=== PATIENT | male | born 1950 | race Hispanic/Latino ===

== ENCOUNTER → 2021-12-18 | Outpatient (CLI) | payer OTHER ==
[~2021-12-18] VITALS: Ht 167.6 cm; Wt 105.2 kg
[~2021-12-18] MED LIST: REGADENOSON 0.4 MG/5 ML PF SYG IVP SCH
== END ==
LOC: SHCH 08:28
PROVIDERS: ATTEND Internal Medicine Cardiovascular Disease
DX: R55 Syncope and collapse (principal)
CPT/HCPCS: 78452; 93017; 96374; A9500 ×2; J2785

== ENCOUNTER → 2021-12-23 | Outpatient (CLI) | payer OTHER | END | disposition home or self-care (01) | LOC: SHCH 09:40 | PROVIDERS: ATTEND Internal Medicine Cardiovascular Disease | DX: I77.810 Thoracic aortic ectasia (principal); I10 Essential (primary) hypertension; R55 Syncope and collapse | CPT/HCPCS: 93306 ==

== ENCOUNTER 2022-02-03 06:26 | Day surgery (SDC) | payer OTHER ==
[2022-02-01 13:13] LABS: BASOPHILS % (AUTO) 0.8 % (0.0-5.0); EOSINOPHILS % (AUTO) 4.4 % (0.0-8.0); HEMATOCRIT 49.2 % (42-54); LYMPHOCYTES % (AUTO) 29.9 % (21.0-51.0); MEAN CORPUSCULAR HEMOGLOBIN 29.6 pg (27.0-33.0); MEAN CORPUSCULAR HGB CONC 32.5 g/dL (32.0-36.0); MEAN CORPUSCULAR VOLUME 90.9 fL (79-99); MONOCYTES % (AUTO) 7.4 % (3.0-13.0); NEUTROPHILS % (AUTO) 56.8 % (40.0-77.0); PLATELET COUNT (AUTO) 240 K/uL (130-400); RED BLOOD CELL COUNT(AUTO) 5.41 MIL/uL (4.50-6.20); RED CELL DISTRIBUTION WIDTH 13.2 % (11.0-15.5); WHITE BLOOD COUNT (AUTO) 9.6 K/uL (4.8-10.8)
[2022-02-01 13:28] LABS: INR 0.94 (0.85-1.15); PROTHROMBIN TIME 10.3 SEC (9.6-11.6)
[2022-02-01 13:29] LABS: PARTIAL THROMBOPLASTIN TIME 29.9 SEC (26.3-35.5)
[2022-02-01 13:32] LABS: CREATININE 1.4 mg/dL (0.5-1.5); POTASSIUM 4.1 mmol/L (3.5-5.1)
[2022-02-01 13:39] LABS: APPEARANCE,URINE CLEAR (CLEAR); BILIRUBIN,URINE NEGATIVE (NEGATIVE); COLOR,URINE YELLOW (YELLOW); GLUCOSE, URINE (UA) NEGATIVE (NEGATIVE); KETONES,URINE NEGATIVE (NEGATIVE); LEUKOCYTE ESTERASE ,URINE NEGATIVE (NEGATIVE); NITRATE,URINE NEGATIVE (NEGATIVE); OCCULT BLOOD,URINE NEGATIVE (NEGATIVE); PROTEIN,URINE NEGATIVE (NEGATIVE); UROBILINOGEN,URINE 0.2 mg/dL (0.2-1.0)
[2022-02-01 15:05] LABS: B-TYPE NATRIURETIC PEPTIDE 53 pg/mL (0-100)
[2022-02-03] VITALS (8 sets, daily range): BP systolic 128–169; BP diastolic 73–94
[~2022-02-03] VITALS: Ht 167.6 cm; Wt 106.4 kg
[~2022-02-03 06:26] MED LIST changes: +AMLO-257 PO; +ASPI-1443 PO; +CYCL30DR OP; +DUTA0.5C37 PO; +HYDR12.54 PO; +METO-391 PO; +MONT10TA21 PO; +NIAC500T22 PO; +OLME40TA18 PO; +PRAV80TA21 PO; -REGADENOSON 0.4 MG/5 ML PF SYG IVP SCH; +TAMS-1 PO; +alegra PO
[2022-02-03] MEDS ORDERED: NITROGLYCERIN 50MG VIAL ONE (07:05)
[2022-02-03] MEDS ORDERED: HEPARIN 10,000 UNIT/10ML (1,000 UNIT/ML) VIAL ONE (07:05)
[2022-02-03] MEDS ORDERED: IOHEXOL 350 MG/ML 100ML INFUS..BTL IV ONE (07:05)
[2022-02-03] MEDS ORDERED: IOHEXOL-350 50ML VIAL IV ONE ×2 (07:05→08:03)
[2022-02-03] MEDS ORDERED: LIDOCAINE HCL 400MG/20ML VIAL ONE (07:06)
[2022-02-03] MEDS ORDERED: FENTANYL CITRATE PF 50 MCG/1 ML 2ML VIAL ONE (07:06)
[2022-02-03] MEDS ORDERED: MIDAZOLAM HCL 1 MG/ML 2ML VIAL ONE (07:06)
[2022-02-03] MEDS ORDERED: BIVALIRUDIN 250 MG/VIAL IV ONE (07:26)
[2022-02-03] MEDS ORDERED: 0.9%NACL 1000ML 1,000 ML IV SCH ×2 (08:00→08:30)
[2022-02-03 09:47] LABS: CHOLESTEROL 150 mg/dL (<200); HDL CHOLESTEROL 31 mg/dL (29-71); LDL DIRECT 71 mg/dL (0-99); TRIGLYCERIDES 237 mg/dL (30-200)
== END 2022-02-03 12:45 | disposition home or self-care (01) ==
LOC: DAH 06:26
PROVIDERS: ATTEND Internal Medicine Cardiovascular Disease
DX: I25.10 Atherosclerotic heart disease of native coronary artery without angina pectoris (principal); I11.0 Hypertensive heart disease with heart failure; I50.32 Chronic diastolic (congestive) heart failure; E66.9 Obesity, unspecified; Z79.01 Long term (current) use of anticoagulants; Z79.899 Other long term (current) drug therapy; Z79.82 Long term (current) use of aspirin; Z98.890 Other specified postprocedural states; Z85.46 Personal history of malignant neoplasm of prostate; Z68.38 Body mass index [BMI] 38.0-38.9, adult
CPT/HCPCS: 36415 ×2; 71045; 80048; 80061; 81003; 83880; 85025; 85610; 85730; 93005; 93458; A4215; A4216; A4221; A4222; A4223 ×3; A4606; A4663; C1760; C1894 ×2; J1644; J2250; J3010; J3490 ×2; J7030; Q9965; Q9967 ×3; 96360; 96361; 99156; 99157; J0583

== ENCOUNTER → 2022-07-26 | Outpatient (CLI) | payer OTHER ==
[2022-07-26 16:31] LABS: ALBUMIN 3.4 g/dL (3.5-5.0); CREATININE 1.3 mg/dL (0.5-1.5); POTASSIUM 4.2 mmol/L (3.5-5.1)
== END | disposition home or self-care (01) ==
LOC: LAB 11:35
PROVIDERS: ATTEND Internal Medicine Cardiovascular Disease
DX: I10 Essential (primary) hypertension (principal); E78.5 Hyperlipidemia, unspecified
CPT/HCPCS: 36415; 80053; 80061

== ENCOUNTER → 2022-09-23 | Outpatient (CLI) | payer OTHER ==
[2022-09-23 12:54] LABS: CREATININE 1.5 mg/dL (0.5-1.5); POTASSIUM 5.1 mmol/L (3.5-5.1)
== END | disposition home or self-care (01) ==
LOC: LAB 11:31
PROVIDERS: ATTEND Internal Medicine Cardiovascular Disease
DX: I10 Essential (primary) hypertension (principal)
CPT/HCPCS: 36415; 80048

== ENCOUNTER → 2022-10-06 | Outpatient (CLI) | payer OTHER ==
[2022-10-06 13:01] LABS: CREATININE 1.5 mg/dL (0.5-1.5); POTASSIUM 4.6 mmol/L (3.5-5.1)
== END | disposition home or self-care (01) ==
LOC: LAB 09:51
PROVIDERS: ATTEND Internal Medicine Cardiovascular Disease
DX: I25.10 Atherosclerotic heart disease of native coronary artery without angina pectoris (principal)
CPT/HCPCS: 36415; 80048

== ENCOUNTER → 2022-12-23 | Outpatient (CLI) | payer OTHER ==
[~2022-12-23] MED LIST changes: +MONT-47 PO; -MONT10TA21 PO
[2022-12-23 12:27] LABS: POTASSIUM 4.3 mmol/L (3.5-5.1)
[2022-12-23 12:28] LABS: CREATININE 1.5 mg/dL (0.5-1.5)
== END | disposition home or self-care (01) ==
LOC: LAB 09:15
PROVIDERS: ATTEND Internal Medicine Cardiovascular Disease
DX: I10 Essential (primary) hypertension (principal)
CPT/HCPCS: 36415; 80048

== ENCOUNTER 2023-10-27 12:15 | Emergency (ER) | payer OTHER ==
[~2023-10-27] VITALS: Ht 165.1 cm; Wt 103.0 kg
[~2023-10-27 12:15] MED LIST changes: -PRAV80TA21 PO; +PRAV80TA43 PO
[2023-10-27] MEDS: ALBUTEROL 0.083% 2.5 MG/3 ML INH IH ONE (13:37)
[2023-10-27 13:38] VITALS: PULSE 83; RESP 18
[2023-10-27 13:52] LABS: BASOPHILS # (AUTO) 0.05 K/uL (0.00-0.20); BASOPHILS % (AUTO) 0.5 % (0.0-5.0); EOSINOPHILS # (AUTO) 0.15 K/uL (0.00-0.70); EOSINOPHILS % (AUTO) 1.4 % (0.0-8.0); HEMATOCRIT 43.5 % (42-54); IMMATURE GRANULOCYTE ABSOLUTE 0.04 K/uL (0-1); LYMPHOCYTES # (AUTO) 2.1 K/uL (1.0-4.8); LYMPHOCYTES % (AUTO) 19.8 % (21.0-51.0); MEAN CORPUSCULAR HEMOGLOBIN 30.7 pg (27.0-33.0); MEAN CORPUSCULAR HGB CONC 33.3 g/dL (32.0-36.0); MEAN CORPUSCULAR VOLUME 92.2 fL (79-99); MONOCYTES # (AUTO) 0.7 K/uL (0.1-1.0); MONOCYTES % (AUTO) 6.9 % (3.0-13.0); NEUTROPHILS # (AUTO) 7.4 K/uL (1.8-7.7); PLATELET COUNT (AUTO) 191 K/uL (130-400); RED BLOOD CELL COUNT(AUTO) 4.72 MIL/uL (4.50-6.20); RED CELL DISTRIBUTION WIDTH 12.8 % (11.0-15.5); WHITE BLOOD COUNT (AUTO) 10.5 K/uL (4.8-10.8)
[2023-10-27 14:03] LABS: CREATININE 1.9 mg/dL (0.5-1.5); POTASSIUM 4.1 mmol/L (3.5-5.1)
[2023-10-27 14:10] LABS: ALBUMIN 3.2 g/dL (3.5-5.0); BILIRUBIN,TOTAL 0.7 mg/dL (0.2-1.0); TOTAL PROTEIN, SERUM 7.2 g/dL (6.0-8.3)
[2023-10-27] MEDS ORDERED: ALBU90AE2 IH (14:54)
[2023-10-27] MEDS ORDERED: GUAI400T94 PO (14:54)
[2023-10-27] MEDS ORDERED: AZIT250T9 PO (14:54)
[2023-10-27 15:24] VITALS: BP 128/80; PULSE 78; RESP 16; O2SAT 96
== END 2023-10-27 15:26 | disposition home or self-care (01) ==
LOC: EDH 12:15
DX: R05.9 Cough, unspecified (principal); R07.89 Other chest pain; N17.9 Acute kidney failure, unspecified; E78.00 Pure hypercholesterolemia, unspecified; I10 Essential (primary) hypertension
CPT/HCPCS: 36415; 71045; 80053; 84484; 85025; 93005; 94640

== ENCOUNTER 2025-05-06 21:34 | Inpatient (IN) | payer OTHER ==
[~2025-05-06] VITALS: Ht 167.6 cm; Wt 106.6 kg
[~2025-05-06 21:34] MED LIST changes: +ALBU90AE3 IH; +AZIT250T9 PO; +GUAI400T94 PO; -PRAV80TA43 PO; +PRAV80TA75 PO; -TAMS-1 PO; +TAMS-55 PO
--- NOTE | 2025-05-06 21:51 | NUR ---
PT CARE ASSUMED AT THIS TIME
--- NOTE | 2025-05-06 21:55 | NUR ---
URINAL GIVEN TO PT TO COLLECT URINE SAMPLE
[2025-05-06] MEDS: 0.9%NACL 1000ML 1,000 ML IV ONE ×2 (22:05→23:20)
--- NOTE | 2025-05-06 22:08 | ERN ---
ED Note History of Present Illness Stated Complaint: C/O SYNCOPAL EPISODE W/HYPOTENSION Chief Complaint: Hypotension Time Seen by MD: 21:39 Dictation: This 74-year-old male brought to the emergency room with complaints of being passed out. Apparently patient was working in the attic and when daughter found him he was hard to arouse. Apparently he told the family he was working on changing the bulbs in the attic and went early in the morning after breakfast. He was not answering any texts or cell phone calls and when family checked on him they found him passed out and difficult to arouse. They decided to bring him in for evaluation. Patient was awake when they eventually woke him up but falling asleep quickly. No head injury no lacerations hematomas or deformities. No fever chills or rigors. No cough sputum or hemoptysis. No nausea vomitings diarrhea. No slurred speech blurred vision diplopia motor weakness or any witnessed seizure activity. Temperature 99.3 pulse 117 respirations 20 blood pressure 82/54 with a pulse oximetry of 95% on room air Chronic problems include hypertension hypercholesterolemia, right eye corneal opacification and BPH Allergies: Coded Allergies: No Known Drug Allergies (Unverified Allergy, Unknown, 12/17/21) Home Meds Active Scripts Albuterol Sulfate (Proair Digihaler) 90 Mcg Aer.pw.bas, 90 MCG IH TID PRN for WHEEZING, #1 INHALER Prov:LUCIA SALAS V [facility] 10/27/23 Guaifenesin (Guaifenesin) 400 Mg Tablet, 400 MG PO BID PRN for COUGH, #30 TAB Prov:LUCIA SALAS V [facility] 10/27/23 Azithromycin (Azithromycin) 250 Mg Tablet, 250 MG PO DAILY, #6 TAB Take 2 now then 1 daily until complete Prov:LUCIA SALAS V [facility] 10/27/23 Reported Medications Montelukast Sodium (Singulair) 10 Mg Tablet, 10 MG PO HS, TAB 02/02/22 [alegra] No Conflict Check, 100 MG PO DAILY 02/02/22 Aspirin (Aspirin EC) 81 Mg Tablet.dr, 81 MG PO HS, TAB 02/02/22 Niacinamide (Niacin) 500 Mg Tablet, 2000 MG PO HS, TAB 02/02/22 Cyclosporine (Restasis) 1 Each Droperette, 1 EACH OP BID, DROP 02/02/22 Dutasteride (Dutasteride) 0.5 Mg Capsule, 0.5 MG PO DAILY, CAP 02/02/22 Tamsulosin HCl (Flomax) 0.4 Mg Cap.er.24h, 0.4 MG PO DAILY, CAPSULE.DR 02/02/22 Pravastatin Sodium (Pravastatin Sodium) 80 Mg Tablet, 80 MG PO HS, TAB 02/02/22 Metoprolol Succinate (Metoprolol Succinate) 50 Mg Tab.er.24h, 50 MG PO DAILY, TAB 02/02/22 Hydrochlorothiazide (Hydrochlorothiazide) 12.5 Mg Tablet, 12.5 MG PO DAILY, TAB 02/02/22 Amlodipine Besylate (Amlodipine Besylate) 5 Mg Tablet, 5 MG PO DAILY, TAB 02/02/22 Olmesartan Medoxomil (Olmesartan Medoxomil) 40 Mg Tablet, 40 MG PO DAILY, TAB 02/02/22 Past Medical History Past Medical History: High Cholesterol, Hypertension Surgical History: Unknown Surgical History Other: RT EYE Family History: Negative RN Note Reviewed/Agreed w/PFSH: Yes Review of System Dictation Constitutional: Negative for fever,chills, and weight loss Eyes: Negative for injury, pain,redness, and discharge ENT: Negative for injury,pain or swelling Cardiovascular: Negative for chest pain, palpitations, and edema positive for syncope and hypotension Respiratory: Negative for shortness of breath, cough, and wheezing, Abdomen/GI: Negative for abdominal pain, nausea, vomiting, diarrhea, and constipation Back: Negative for injury and pain : Negative for injury, bleeding and discharge MS/Extremity: Negative for injury and deformity Skin: Negative for rash, and discoloration Neuro: Negative for headache, weakness, numbness, tingling, and seizure Psych: Negative for suicide ideation, homicidal ideation, and hallucinations Initial Vital Sign VS Vital Signs Date Time Temp Pulse Resp B/P (MAP) Pulse Ox O2 Delivery O2 Flow Rate FiO2 05/06/25 21:42 99.3 117 20 82/51 95 Room Air 05/06/25 22:06 0 21 Physical Exam Dictation General: awake, alert, NAD morbidly obese very pleasant male sleepy but arousable Head/Face: Normocephalic, atraumatic Eyes: PERRL, EOMI, vision at baseline right eye corneal opacification ENT: oral cavity clear, TMs clear, no signs of infection Neck: Trachea midline, supple, no nuchal rigidity Cardiovascular: RRR, normal S1/S2, grade 2-3/6 ejection systolic murmur in the right upper sternal border MRGs, no JVD Respiratory:, no respiratory distress, bilateral coarse rhonchi and wheezes occasionally Abdomen: Soft, non-tender, obese non-distended, normal bowel sounds, no guarding or rebound. Skin: Warm, dry, normal turgor, no rash MS/Extremity: Pulses equal, no cyanosis, neurovascular intact, FROM Neuro: COAx4, GCS 15, strength 5/5, CN 2-12 intact, normal cerebellar exam, normal gait, Psych: Normal behavior, mood, and affect normal Extremities-trace edema without any palpable cords, Homans sign is negative Results (Laboratory/Radiology) Laboratory/Radiology Laboratory Tests Test 05/06/25 22:04 05/06/25 23:10 05/07/25 00:14 05/07/25 01:11 White Blood Count 19.2 K/uL (4.8-10.8) H Red Blood Count 5.24 MIL/uL (4.50-6.20) Hemoglobin 15.9 g/dL (14.0-18.0) Hematocrit 48.8 % (42-54) Mean Corpuscular Volume 93.1 fL (79-99) Mean Corpuscular Hemoglobin 30.3 pg (27.0-33.0) Mean Corpuscular Hemoglobin Concent 32.6 g/dL (32.0-36.0) Red Cell Distribution Width 13.7 % (11.0-15.5) Platelet Count 222 K/uL (130-400) Mean Platelet Volume 11.8 fL (7.5-10.5) H Immature Granulocyte % (Auto) 0.8 % (0-1) Neutrophils (%) (Auto) 81.9 % (40.0-77.0) H Lymphocytes (%) (Auto) 11.3 % (21.0-51.0) L Monocytes (%) (Auto) 5.5 % (3.0-13.0) Eosinophils (%) (Auto) 0.1 % (0.0-8.0) Basophils (%) (Auto) 0.4 % (0.0-5.0) Neutrophils # (Auto) 15.7 K/uL (1.8-7.7) H Lymphocytes # (Auto) 2.2 K/uL (1.0-4.8) Monocytes # (Auto) 1.1 K/uL (0.1-1.0) H Eosinophils # (Auto) 0.01 K/uL (0.00-0.70) Basophils # (Auto) 0.07 K/uL (0.00-0.20) Absolute Immature Granulocyte (auto 0.15 K/uL (0-1) Nucleated Red Blood Cells 0.0 % (0.0-0.19) Sodium Level 136 mmol/L (136-145) Potassium Level 4.3 mmol/L (3.5-5.1) Chloride Level 102 mmol/L (101-111) Carbon Dioxide Level 21 mmol/L (21-32) Blood Urea Nitrogen 43 mg/dL (7-18) H Creatinine 4.1 mg/dL (0.5-1.3) H Glomerular Filtration Rate Calc 15 mL/min (>90) Random Glucose 143 mg/dL (70-105) H Lactic Acid Level 3.3 mmol/L (0.8-2.5) H Total Calcium 10.4 mg/dL (8.5-10.1) H Total Creatine Kinase 2499 U/L (21-232) *H Troponin I High Sensitivity 107.5 ng/L (4-75) *H B-Type Natriuretic Peptide 88 pg/mL (0-100) Blood Gas Specimen Type Arterial Arterial Blood pH 7.333 (7.350-7.450) Arterial Blood Partial Pressure CO2 32 mmHg (35-48) L Arterial Blood Partial Pressure O2 75.0 mmHg (83.0-108.0) L Arterial Blood HCO3 16.7 mmol/L (21.0-28.0) L Arterial Blood Oxygen Saturation 94.4 % (94.0-98.0) Arterial Blood Base Excess -7.9 mmol/L (-2.0-3.0) L Blood Gas Temperature 37.0 CELSIUS (35.5-37.0) Blood Gas Vent Mode ROOMAIR (ROOM AIR) FiO2 21.0 % Blood Gas Specimen Comment RB Influenza Type A Antigen Negative For Type A Influenza Type B Antigen Negative For Type B SARS-CoV-2 Antigen (Rapid) PRESUMPTIVE NEGATIVE Labs Reviewed?: Yes EKG Comment: Twelve lead EKG done on 05/06/2025 at 9:38 p.m. shows a heart rate of 113, NH interval 184, QRS 115, QT/QTC 317/436. Impression sinus tachycardia with a right bundle branch block, nonspecific ST-T changes noted. EKG rhythm strip shows sinus tachycardia with right bundle branch changes. Interpreted by ER MD Dr. Briones ED Course ED Course Orders Procedure Category Date Status Time Cbc With Differential LAB 05/06/25 Complete 21:42 Blood Cult RICKIE 05/06/25 In Process 21:42 Creatine Kinase, Total LAB 05/06/25 Complete 21:42 Lactic Acid LAB 05/06/25 Complete 21:42 Basic Metabolic Panel LAB 05/06/25 Complete 21:42 Chest 1vw RAD 05/06/25 Resulted 21:42 12 Lead Ekg Tracing- EKG 05/06/25 Complete Technical 21:42 0.9%Nacl 1000ml (Ns PHA 05/06/25 Complete 1000ml) 22:00 Cardiac Panel LAB 05/06/25 Complete 21:42 Ct Head/Brain W/O CT 05/06/25 Resulted Contrast 22:26 Arterial Blood Gas RT 05/06/25 Transmitted 22:28 Albuterol 0.083% PHA 05/06/25 Complete 2.5mg/3ml (Proventil 22:30 B-Type Natriuretic LAB 05/06/25 Complete Peptide 22:28 0.9%Nacl 1000ml (Ns PHA 05/06/25 Complete 1000ml) 23:00 Influenza Type A & B, LAB 05/06/25 Complete Rapid 23:17 Covid19 (Sars Antigen LAB 05/06/25 Complete Rapid) 23:17 Arterial Blood Gas LAB 05/07/25 Complete 00:14 Admit Orders ADM 05/07/25 Transmitted 00:34 Midodrine Hcl 5 Mg PHA 05/07/25 Complete Tablet (Proamatine 5 01:00 Edm Admit Bridge Order ADM 05/07/25 Transmitted 00:45 Urinalysis Profile LAB 05/07/25 Logged 00:45 Ceftriaxone 1g Vial PHA 05/07/25 Complete (Rocephine 1g Inj) 01:00 0.9%Nacl 1000ml (Ns PHA 05/07/25 In Process 1000ml) 01:30 Zosyn 3.375gm+Ns 50ml PHA 05/07/25 In Process (Zosyn 3.375gm+Ns 03:00 Renal Nondialysis Diet DIET 05/07/25 Transmitted Breakfast Basic Metabolic Panel LAB 05/07/25 Logged 04:00 Cbc With Differential LAB 05/07/25 Logged 04:00 Magnesium LAB 05/07/25 Logged 04:00 Phosphorus LAB 05/07/25 Logged 04:00 Troponin I High LAB 05/07/25 Logged Sensitivity 04:00 Troponin I High LAB 05/07/25 Logged Sensitivity 10:00 Troponin I High LAB 05/07/25 Logged Sensitivity 16:00 Urine Sodium,Random LAB 05/07/25 Logged 01:24 Urine Creatinine LAB 05/07/25 Logged Random 01:24 Urinalysis Profile LAB 05/07/25 Logged 01:24 Osmolality Urine LAB 05/07/25 Logged 01:24 Fall Precautions CPOE 05/07/25 Transmitted 01:24 Us Carotid Duplex US 05/07/25 Logged 01:24 Echo 2-D Complete ECHO 05/07/25 Logged 01:24 Neuro Checks Every 4 CPOE 05/07/25 Transmitted Hours 01:24 Orthostatic Vital CPOE 05/07/25 Transmitted Signs 01:24 Creatine Kinase, Total LAB 05/07/25 Logged 04:00 Lactic Acid LAB 05/07/25 Logged 04:00 Procalcitonin LAB 05/07/25 In Process 01:24 Acetaminophen 325 Tab PHA 05/07/25 In Process (Tylenol 325mg Tab 01:30 Hydromorphone 0.5mg PHA 05/07/25 In Process Syg (Dilaudid 0.5mg 01:30 Heparin 5,000 Unit PHA 05/07/25 In Process Vial (Heparin 5,000 U 09:00 Hydralazine 20mg Inj PHA 05/07/25 In Process (Apresoline 20mg In 01:30 Lactated Ringers PHA 05/07/25 In Process 1000ml (Lactated 01:30 Lactulose 20 Gm/30 Ml PHA 05/07/25 In Process Udcup (Constulose 01:30 Nitroglycerin 0.4mg PHA 05/07/25 In Process Sl Tab (Nitrostat) 01:30 Aspirin 81mg Chew Tab PHA 05/07/25 Complete (Aspirin 81mg Chew 01:30 Aspirin 81mg Ec Tab PHA 05/07/25 In Process (Aspirin 81mg Ec Tab 09:00 Ondansetron 4mg Inj PHA 05/07/25 In Process (Zofran 4mg Inj) 01:30 Pantoprazole 40mg Tab PHA 05/07/25 In Process (Protonix 40mg Tab 09:00 Atorvastatin 40mg PHA 05/07/25 In Process (Lipitor 40mg) 21:00 Lactic Acid (Removed) LAB 05/07/25 Logged 01:44 Current Medications Medications (Trade) Dose Ordered Sig/Dale Route PRN Reason Start Time Stop Time Status Last Admin Dose Admin Albuterol Sulfate (Proventil 0.083% 2.5mg/3ml) 2.5MG ONCE ONCE IH 05/06/25 22:30 05/06/25 22:33 DC 05/06/25 23:58 Sodium Chloride 1,000 ml @ 0 mls/hr ONCE ONCE IV 05/06/25 22:00 05/06/25 22:01 DC 05/06/25 22:05 Sodium Chloride 1,000 ml @ 0 mls/hr Q0M ONCE IV 05/06/25 23:00 05/06/25 23:01 DC 05/06/25 23:20 Vital Signs Date Time Temp Pulse Resp B/P (MAP) Pulse Ox O2 Delivery O2 Flow Rate FiO2 05/07/25 00:54 82 21 122/68 95 Room Air* 0 05/07/25 00:18 82 17 101/62 99 Room Air* 0 05/06/25 23:58 82 18 05/06/25 23:00 112 25 89/56 95 Room Air* 0 05/06/25 22:06 99.3 111 30 89/52 93 Room Air* 0 05/06/25 21:42 99.3 117 20 82/51 95 Room Air We will perform diagnostic labs, advanced imaging and administer medications according to the patient's complaint. Once the results are available, will review and personally interpreted the labs to rule out any acute life- threatening emergency the trach require immediate intervention and treatment. I will then re-evaluate the patient after treatment and diagnostic exams have return to determine whether the patient requires any further testing, can safely be discharged home or need further admission to hospital for additional treatment and evaluation. 12:45 a.m. patient accepted by Cam Reyes, mid-level provider for [facility] hospitalist group for admission and further management. Medical Decision Making MDM Differential diagnosis: Heat exhaustion/heat stroke, sepsis, severe dehydration, neurological event, cardiac event, hypoglycemia It is conceivable that the patient was exposed to very high temperature is in the attic with no fan and perhaps suffered a heat exhaustion with a nontraumatic rhabdomyolysis. He may have a UTI as he had what his pants. And with a leukocytosis low-grade fever, sepsis is certainly considered. This is a 74-year-old male who is morbidly obese apparently was found in an attic passed out. Apparently he told the family he was working on changing the bulbs in the attic and went early in the morning after breakfast. He was not answering any texts or cell phone calls and when family checked on him they found him passed out and difficult to arouse. They decided to bring him in for evaluation. Patient was awake when they eventually woke him up but falling asleep quickly. No head injury no lacerations hematomas or deformities. No fever chills or rigors. No cough sputum or hemoptysis. No nausea vomitings diarrhea. No slurred speech blurred vision diplopia motor weakness or any witnessed seizure activity. Temperature 99.3 pulse 117 respirations 20 blood pressure 82/54 with a pulse oximetry of 95% on room air His chronic medical problems include hypertension and hyperlipidemia. 10:50 p.m. CBC showed a white count of 19.2 hemoglobin 15.9 platelets 222 11:15 p.m. BNP 7 showed a BUN and creatinine of 43 and 4.1 calcium 10.4 lactic acid 3.3 total CK 2499 troponins 107.5 12:[address] scan of the head has been done-radiology interpretation is still pending. I did not appreciate any acute intracranial abnormality. Chest x-ray is unremarkable for any acute infiltrate After 2 L of IV fluids patient is very perked up more interactive joking and denied absolutely any chest pain, neck pain or jaw pain. I updated the patient and his on all the available test results and possibilities and recommended admission to the hospital for close monitoring of the blood pressure. Once urinalysis is obtained we will give him empiric antibiotics to cover UTI. Rationale: Tests considered and ordered secondary to shared decision making include: labs, ECG and radiology Previous outside records reviewed: Old ER visits. Risk of complication and/or morbidity or mortality of patient management: None Medications-Per medication reconciliation Need for hospitalization: Patient does meet criteria for hospitalization. Need for emergency major/minor surgery: No There are no social concerns with this patient. Prescription drug management Prescriptions will include symptomatic care Patient's prior external medical records from other ER visits were reviewed by me as indicated. Prior testing and results from previous visits were reviewed. Prior tests were taken into account with medical decision making and resource utilization, independent historian/historians were used to obtain complete medical history. I independently interpreted the test that were performed, results were reviewed by me and considered findings on radiology if ordered. Medical management and examination interpretation discussions were had by me with other qualified healthcare professionals as indicated for the patient's care. Problem List Problem List: (1) Syncope (2) Hypotension (3) Dehydration (4) Lactic acidosis (5) Severe sepsis (6) Elevated troponin level (7) Non-traumatic rhabdomyolysis (8) TRACEY (acute kidney injury) Critical Care Note Critical Time: 45 minutes Comment(s) Life-threatening illness; hypotension, lactic acidosis, syncope, rhabdomyolysis, renal insufficiency Risk of morbidity mortality-high Complexity of medical decision making-high (X) high probability of sudden clinically significant deterioration in the patient's condition required the highest level of my preparedness to intervene urgently. I provided critical care services requiring my direct and personal management as noted below; (x) chart data review (x) reviewing nurse's notes and/charts (x) documentation time (x) consultation collaboration on findings and therapy options (x) medication orders and management (x) re-evaluations (x) care, transfer of care, and discharge plans (x) ordering and interpreting studies (x) ordering and reviewing labs (x) obtaining necessary history from family, EMS, detention, private MD, surrogate decision makers because patient was unable to give history due to limitations in the mental status (x) aggregate critical care time was ( 45 ) minutes. This includes only time during which I was engaged in work directly related to the patient's care as described above whether at the bedside or elsewhere in the ER while the patient was critical. My time did not include minutes spent treating any other patients simultaneously or on activities that did not directly contribute to the patient's treatment. It did not include time spent performing other reported procedures or services of residents if any. Nicole UBRINACP DX & DISP Disposition: Inpatient Decision to Admit Time: 00:47 Departure Impression: Primary Impression: Syncope Additional Impressions: Hypotension, Dehydration, Severe sepsis, Lactic acidosis, Non-traumatic rhabdomyolysis, Elevated troponin level Condition: Stable Additional Instructions: Patient was informed of all the diagnostic labs and procedures conducted in the emergency room today and demonstrated understanding of the results. I personally reviewed and interpreted all the diagnostic exams performed in the ER today. The patient will be admitted to the hospital for further treatment and evaluation. Disposition-admit to facility Condition-stable/guarded Course-uncertain at this time Pain status-decreased Assessment-exam unchanged Admission Certification- I certify that the patients status is appropriate and is based on my best clinical judgment and the patient's condition as documented in the medical records Referrals: HAYES CARNEY MD (PCP) NICOLE BRIONES MD May 06, 2025 22:07
[2025-05-06 22:43] LABS: IMMATURE GRANULOCYTE ABSOLUTE 0.15 K/uL (0-1); NUCLEATED RED BLOOD CELLS 0.0 % (0.0-0.19); PLATELET COUNT (AUTO) 222 K/uL (130-400); RED BLOOD CELL COUNT(AUTO) 5.24 MIL/uL (4.50-6.20); RED CELL DISTRIBUTION WIDTH 13.7 % (11.0-15.5); WHITE BLOOD COUNT (AUTO) 19.2 K/uL (4.8-10.8)
[2025-05-06 22:55] LABS: CREATININE 4.1 mg/dL (0.5-1.3); GLOMERULAR FILTR. RATE CALC 15.0 mL/min (>90); GLUCOSE,RANDOM 143.0 mg/dL (70-105); SODIUM SERUM 136.0 mmol/L (136-145); UREA NITROGEN, BLOOD 43.0 mg/dL (7-18)
[2025-05-06 23:15] LABS: CREATINE KINASE, TOTAL 2499.0 U/L (21-232)
--- NOTE | 2025-05-06 23:23 | HMCIMG ---
EXAM: CR Chest, 2 View. CLINICAL HISTORY: hypotension COMPARISON: None provided. FINDINGS: LUNGS: The lungs show no infiltrate or other acute finding. PLEURAL SPACES: No evidence of pleural effusion or pneumothorax. MEDIASTINUM: The cardiomediastinal silhouette is within normal limits. BONES: No aggressive appearing osseous lesion seen. IMPRESSION: No acute cardiopulmonary pathology is evident. /[place]
[2025-05-06 23:58] VITALS: PULSE 82; RESP 18
[2025-05-06] MEDS: ALBUTEROL 0.083% 2.5 MG/3 ML INH IH ONE (23:58)
--- NOTE | 2025-05-07 00:02 | EKG ---
[facility] Test Date: 2025-05-06 Test Time: 21:38:58 Pat Name: GERALD CASE Department: ED Room: 318 Gender: M Manager Image: [id number] [phone] Requested By: URIAH HICKMAN Order Number: [id number] Reading MD: Donovan Denton Measurements Intervals [place] Rate: 113 P: 10 ND: 184 QRS: 72 QRSD: 115 T: 21 QT: 317 QTc: 436 Interpretive Statements Sinus tachycardia Right bundle branch block Compared to ECG 10/27/2023 13:31:12 Sinus rhythm no longer present Electronically Signed On 05-09-2025 19:53:21 CDT by Donovan Denton Please click the below link to view image of tracing.
--- NOTE | 2025-05-07 00:09 | HMCIMG ---
EXAM: Non-contrast CT examination of the Brain. CLINICAL HISTORY: Syncope. TECHNIQUE: Thin collimated axial CT images of the brain were obtained, with sagittal and coronal reformatted images also submitted. CT scan done according to ALARA (As Low as Reasonably Achievable). CONTRAST USED: None. COMPARISON: None provided. FINDINGS: No acute intracranial abnormality is present. No acute cortical infarction, hemorrhage, mass, or mass effect. Mild to moderate chronic ischemic changes secondary to small vessel disease. No hydrocephalus or abnormal extra-axial fluid collections. The posterior fossa is unremarkable. The skull base and calvarium are intact. Mild scutal mucosal disease in the paranasal sinuses. The mastoid air cells are clear bilaterally. Questionable calcified ectopia lentis in the right eye globe. Mild scarring around the left occipital scalp. IMPRESSION: No acute intracranial abnormality is present. Mild to moderate chronic ischemic changes secondary to small vessel disease. /[place]
[2025-05-07 00:16] LABS: ABG BASE EXCESS -7.9 mmol/L (-2.0-3.0); ABG HCO3 16.7 mmol/L (21.0-28.0); ABG OXYGEN SATURATION 94.4 % (94.0-98.0); ABG PCO2 32 mmHg (35-48); ABG PH 7.333 (7.350-7.450); PO2, ARTERIAL BG 75.0 mmHg (83.0-108.0); TEMPERATURE, CELSIUS BG 37.0 CELSIUS (35.5-37.0); VENT MODE, BG ROOMAIR (ROOM AIR)
[2025-05-07] MEDS ORDERED: NITROGLYCERIN 0.4 MG SL TAB SL PRN (01:30)
[2025-05-07] MEDS ORDERED: LACTULOSE 20 GM/30 ML UDCUP PO PRN (01:30)
[2025-05-07] MEDS: LACTATED RINGERS 1000ML 1,000 ML IV SCH (01:30)
[2025-05-07 01:36] LABS: COVID19 (SARS ANTIGEN RAPID) PRESUMPTIVE NEGATIVE (NEGATIVE); INFLUENZA TYPE A Negative For Type A (NEGATIVE); INFLUENZA TYPE B Negative For Type B (NEGATIVE)
[2025-05-07] MEDS: 0.9%NACL 1000ML 1,914 ML IV ONE (01:40)
--- NOTE | 2025-05-07 01:41 | HP ---
History of Present Illness Reason for Visit: dizziness History of Present Illness Mr. Serna is a 74-year-old male that was seen and examined today on 05/07/2025. Patient came to the emergency department with a chief complaint of syncope. Onset was 05/06/2025. Location is head. Duration is on and off. Patient reports one episode. Character is described as, "like I just passed out and fell asleep. "There was no alleviating factors. Symptoms are aggravated with the changing a light bulb in a hot attic. Patient reports associated loss of consciousness. Today in the emergency department patient arrived with a blood pressure of 82/51 that responded well to 2 L of 0.9% NS. Additionally heart rate was 117, respirations 25 together with WBCs of 19.2 lactic acid 3.3 patient met clinical sepsis criteria. Patient has a left shift neutrophils 81.9%, BUN 43, creatinine 4.1, lactic acid 3.3, CK 2499, troponin elevated at 107.5, chest x-ray is unremarkable. Emergency room physician recommended patient be admitted with a diagnosis of hypotension, syncope, elevated troponin, rhabdomyolysis, sepsis, leukocytosis, TRACEY on CKD. 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 Patient lives with his of 50 years, Ary Serna. Patient is typically independent of his ADLs. Patient denies difficulty pain is bills.] SURGICAL HISTORY: [Left heart catheterization, incision and drainage of posterior neck abscess] Review of Systems General: No Fever, No Chills, No Night Sweats, No Fatigue, No Malaise, No Appetite, No Other HEENT: No Head Aches, No Visual Changes, No Eye Pain, No Ear Pain, No Dysphasia, No Sinus Congestion, No Post Nasal Drip, No Sore Throat, No Other Pulmonary: No Dyspnea, No Cough, No Pleuritic Chest Pain, No Other Cardiovascular: Lt Headedness; No: Chest Pain, Palpitations, Orthopnea, Paroxysmal Noc. Dyspnea, Edema, Other Gastrointestinal: No: Nausea, Vomiting, Abdominal Pain, Diarrhea, Constipation, Melena, Hematochezia, Other Genitourinary: No Dysuria, No Frequency, No Incontinence, No Hematuria, No Retention, No Other Musculoskeletal: No: other, neck pain, shoulder pain, arm pain, back pain, hand pain, leg pain, foot pain Skin: No Urticaria, No Rash, No Other Neurological: No: Weakness, Numbness, Incoordination, Change in speech, Confusion, Seizures, Other Allergies: Coded Allergies: No Known Drug Allergies (Unverified Allergy, Unknown, 12/17/21) Scheduled Amlodipine Besylate (Amlodipine Besylate), 5 MG PO DAILY, (Reported) Aspirin (Aspirin EC), 81 MG PO HS, (Reported) Azithromycin (Azithromycin), 250 MG PO DAILY Cyclosporine (Restasis), 1 EACH OP BID, (Reported) Dutasteride (Dutasteride), 0.5 MG PO DAILY, (Reported) Hydrochlorothiazide (Hydrochlorothiazide), 12.5 MG PO DAILY, (Reported) Metoprolol Succinate (Metoprolol Succinate), 50 MG PO DAILY, (Reported) Montelukast Sodium (Singulair), 10 MG PO HS, (Reported) Niacinamide (Niacin), 2,000 MG PO HS, (Reported) Olmesartan Medoxomil (Olmesartan Medoxomil), 40 MG PO DAILY, (Reported) Pravastatin Sodium (Pravastatin Sodium), 80 MG PO HS, (Reported) Tamsulosin HCl (Flomax), 0.4 MG PO DAILY, (Reported) [alegra], 100 MG PO DAILY, (Reported) Scheduled PRN Albuterol Sulfate (Proair Digihaler), 90 MCG IH TID PRN for WHEEZING Guaifenesin (Guaifenesin), 400 MG PO BID PRN for COUGH Exam Vital Signs Vital Signs Date Time Temp Pulse Resp B/P (MAP) Pulse Ox O2 Delivery O2 Flow Rate FiO2 05/07/25 00:54 82 21 122/68 95 Room Air* 0 21 05/06/25 22:06 99.3 General Appearance: Alert, Oriented X3, Cooperative, No acute distress HEENT: Atraumatic, Other (Right eye corneal hyperplasia) Respiratory: Clear to auscultation, Normal air movement, NL respiratory effort Cardiovascular: Normal S1, Normal S2, Other (Positive tachycardia) Abdominal: Normal bowel sounds, Soft, No tenderness Extremities: No edema Skin: No significant lesion Neuro: Normal speech, Strength at 5/5 X4 ext, Sensation intact, Cranial nerves 3-12 NL Psych/Mental Status: Mental status NL, Mood NL, Thoughts/Content NL Assessment/Plan ASSESSMENT: [ Hypotension, POA Syncope episode, POA Sepsis, POA Leukocytosis, POA Hyperlactatemia, POA Elevated troponin, POA Rhabdomyolysis, POA TRACEY on CKD, POA, today creatinine 4.1, on 10/27/2023 creatinine 1.9 Hypertension BPH Hyperlipidemia PLAN: [ Admit patient to medical floor as inpatient status. Place patient on telemetry monitoring. Hypotension: Patient responded well to 2 L of 0.9% NS. Administer midodrine 5 mg by mouth times 1. Consider upgrading to ICU and starting vasopressor support with Levophed if patient has recurrent hypotension Syncope episode: Check orthostatic vital signs once per shift Fall precautions Ultrasound carotid Doppler, follow up with the results 2D echo, follow up with the results Neuro checks every 2 hours with the vital signs (check GCS, level of consciousness, extremity movement, pupil reaction, hand grasp strength, speech clarity) Sepsis, leukocytosis, hyperlactatemia: Check procalcitonin, follow up with the results. Check blood culture, follow up with the results Check urinalysis, follow up with the results Fluid resuscitation with 0.9% NS at 30 mL/kg Empiric antibiotic therapy with Zosyn Consider deescalating antibiotics if blood cultures negative and no other signs of infection throughout hospitalization Elevated troponin: Administer aspirin 162 mg by mouth times 1 dose Continue aspirin 81 mg by mouth once daily Nitroglycerin sublingual 0.4 mg as needed for chest pain every 5 minutes, max 3 doses, hold for systolic blood pressure less than 100 mmHg. Trend troponin every 6 hours x 3 sets Supplemental oxygen to maintain O2 saturation greater than 92% Consult cardiology if any elevation in troponin or troponin uptrending, or if patient deemed to need stress test by daytime rouding service. Rhabdomyolysis: Patient received 2 L of 0.9% NS in the emergency department. Patient will also receive an extra 1.5 L of fluid to complete 30 mL/kg fluid resuscitation. After that lactated Ringer's at 75 mL/HR Recheck CK in a.m. if less than 1000 discontinue IV fluids. TRACEY on CKD: Reviewed patient's most recent baseline creatinine which was 1.9 on 10/27/2023. Calculate FENA Check urine sodium, creatinine, osmolality Avoid nephrotoxic agents when possible Renally dose all medications when possible Consider consulting Nephrology service if any worsening renal function or evidence of ATN. Monitor patient's labs. Weight patient daily. Monitor intake and output. Hypertension, BPH, hyperlipidemia: Consider resuming home medications once they have been reconciled. At time of admission home medications has been reconciled. For now: Hold patient's blood pressure medications given recent episode of hypotension. Atorvastatin 40 mg by mouth once daily. GI prophylaxis, Protonix DVT prophylaxis, heparin ADVANCED CARE PLANNING 1. Which of the following were discussed? Hospice Care - Yes Therapeutic options - yes Advance Directives - Yes - patient states he does not have any advance directives in place at this time, however his can make decisions for him if he becomes unable. Other discussions - patient wishes to remain a full code 2. Discussed with who? Patient 3. Voluntary nature of this service was explained to the patient? Yes 4. Amount of time spent - ___16 minutes____ 5. Reviewed by Physician? (if this service was performed by NPP) Yes This document was generated in part using voice recognition software, occasional wrong word or sound alike substitutions may have occurred due to the inherent limitations of voice recognition software. Read the chart carefully and recognize using context, where the substitutions have occurred. Although every effort was made to edit the content, principal solutions architect and typing errors may occur ATTESTATION BY PHYSICIAN I have seen and examined the patient. I reviewed the documentation, medical decision making, and treatment plan as noted by the mid-level provider above. I agree with the findings and plan of care. ] [facility] May 07, 2025 01:41
[2025-05-07] MEDS: ASPIRIN 81MG CHEW TAB PO ONE (01:43)
[2025-05-07 02:14] LABS: APPEARANCE,URINE CLOUDY (CLEAR); GLUCOSE, URINE (UA) NEGATIVE (NEGATIVE); LEUKOCYTE ESTERASE ,URINE 25 Leu/uL (NEGATIVE); NITRATE,URINE NEGATIVE (NEGATIVE); OCCULT BLOOD,URINE +- (TRACE) (NEGATIVE)
[2025-05-07 02:17] LABS: CREATININE,URINE RANDOM 342.79 mg/dL (30-135)
[2025-05-07 02:25] LABS: ADD UA MICROSCOPIC YES
[2025-05-07 02:28] LABS: SQUAMOUS EPITHELIAL CELL,UR FEW /HPF (0-2)
[2025-05-07] MEDS ORDERED: LABE100T7 PO ×2 (02:58→06:48)
[2025-05-07] MEDS: ZOSYN 3.375GM +NS 50ML IV SCH (03:31)
[2025-05-07] MEDS ORDERED: AMLO-257 PO (06:48)
[2025-05-07] MEDS ORDERED: EZET10TA80 PO (06:48)
[2025-05-07] MEDS ORDERED: OLME40TA18 PO (06:48)
[2025-05-07] MEDS ORDERED: TAMS-55 PO (06:48)
[2025-05-07] MEDS ORDERED: MONT-39 PO (06:48)
[2025-05-07] MEDS ORDERED: PRAV40TA62 PO (06:48)
[2025-05-07] MEDS ORDERED: OMEG100033 PO (06:48)
[2025-05-07] MEDS ORDERED: SPIR25TA6 PO (06:48)
[2025-05-07] MEDS ORDERED: FEXO180T94 PO (06:48)
[2025-05-07] MEDS ORDERED: DUTA0.5C37 PO (06:48)
[2025-05-07] MEDS ORDERED: ASPI-1197 PO (06:48)
--- NOTE | 2025-05-07 06:48 | NUR ---
MEDICATION RECONCILIATION DONE AT THIS TIME
--- NOTE | 2025-05-07 07:13 | NUR ---
REPORT GIVEN TO ALECIA RN AND KARINA RN AT THIS TIME
[2025-05-07 07:39] LABS: IMMATURE GRANULOCYTE ABSOLUTE 0.07 K/uL (0-1); NUCLEATED RED BLOOD CELLS 0.0 % (0.0-0.19); PLATELET COUNT (AUTO) 182 K/uL (130-400); RED BLOOD CELL COUNT(AUTO) 4.60 MIL/uL (4.50-6.20); RED CELL DISTRIBUTION WIDTH 13.6 % (11.0-15.5); WHITE BLOOD COUNT (AUTO) 16.7 K/uL (4.8-10.8)
[2025-05-07 08:20] LABS: CREATININE 3.2 mg/dL (0.5-1.3); GLOMERULAR FILTR. RATE CALC 20.0 mL/min (>90); GLUCOSE,RANDOM 124.0 mg/dL (70-105); PHOSPHORUS 3.2 mg/dL (2.5-4.9); SODIUM SERUM 138.0 mmol/L (136-145); UREA NITROGEN, BLOOD 47.0 mg/dL (7-18)
[2025-05-07 08:25] LABS: CREATINE KINASE, TOTAL 2970.0 U/L (21-232)
[2025-05-07] MEDS: ASPIRIN 81 MG EC TAB PO SCH (09:23)
--- NOTE | 2025-05-07 11:30 | NUR ---
SPOKE TO DR. CENTENO
[2025-05-07] MEDS: SODIUM BICARBONATE 650 MG TAB PO SCH (11:40)
--- NOTE | 2025-05-07 11:58 | NUR ---
DR. CENTENO AT BEDSIDE
[2025-05-07] MEDS: 0.9%NACL 1000ML 1,000 ML IV SCH (12:30)
--- NOTE | 2025-05-07 13:40 | CONS ---
NEPHROLOGY CONSULTATION NOTE Date/Time Patient Seen: May 07, 2025 [id number] Reason for Consultation: Renal failure HISTORY OF PRESENT ILLNESS: This is a 74-year-old male with a past medical history of chronic kidney disease, hypertension, BPH, hyperlipidemia, right eye blindness. Presented to emergency room complaints of syncope. Patient states he was found in the hot attic. CK on admission was 2,199 U/L Imaging studies were noted Urine was positive for proteinuria. He was noted to have elevated BUN/creatinine We are consulted for renal failure and rhabdomyolysis. Renal function is improving Electrolytes are stable. He was seen in the emergency room, in no acute distress He is complaining of generalized weakness No family at the bedside Prognosis remains guarded REVIEW OF SYSTEMS: GENERAL: Positive for generalized weakness NEUROLOGIC: Negative for any blurry vision, blind spots, double vision, facial asymmetry, dysphagia, dysarthria, hemiparesis, hemisensory deficits, vertigo, ataxia. HEENT: Negative for any head trauma, neck trauma, neck stiffness, photophobia, phonophobia, sinusitis, rhinitis. CARDIAC: Negative for any chest pain, dyspnea on exertion, paroxysmal nocturnal dyspnea, peripheral edema. PULMONARY: Negative for any shortness of breath, wheezing, COPD, or TB exposure. GASTROINTESTINAL: Negative for any abdominal pain, nausea, vomiting, bright red blood per rectum, melena. GENITOURINARY: Negative for any dysuria, hematuria, incontinence. INTEGUMENTARY: Negative for any rashes, cuts, insect bites. RHEUMATOLOGIC: Negative for any joint pains, photosensitive rashes, history of vasculitis or kidney problems. HEMATOLOGIC: Negative for any abnormal bruising, frequent infections or bleeding. PAST MEDICAL HISTORY: chronic kidney disease, hypertension, BPH, hyperlipidemia, right eye blindness. PAST SURGICAL HISTORY: Left heart catheterization I&D neck abscess PAST SOCIAL HISTORY: Denies use of alcohol, tobacco or illicit drugs FAMILY HISTORY: Noncontributory PHYSICAL EXAM: GENERAL: Alert and oriented x 3. No acute distress. Well-nourished. EYES: EOMI. Anicteric. HENT: Moist mucous membranes. No scleral icterus. No cervical lymphadenopathy. LUNGS: Clear to auscultation bilaterally. No accessory muscle use. CARDIOVASCULAR: Regular rate and rhythm. No murmur. No JVD. ABDOMEN: Soft, non-tender and non-distended. No palpable masses. EXTREMITIES: No edema. Non-tender SKIN: No rashes or lesions. Warm. NEUROLOGIC: No focal neurological deficits. CN II-XII grossly intact, but not individually tested. PSYCHIATRIC: Cooperative. Appropriate mood and affect. MEDICATIONS: [ ] Current Medications Medications (Trade) Dose Ordered Sig/Dale Route PRN Reason Start Time Stop Time Status Last Admin Dose Admin Acetaminophen (TYLenol 325MG TAB) 650 mg Q6H PRN PO TEMPERATURE GREATER THAN 101.5 05/07/25 01:30 06/06/25 01:29 Aspirin (Aspirin 81mg Ec Tab) 81 mg DAILY PO 05/07/25 09:00 06/06/25 08:59 05/07/25 09:23 81 MG Atorvastatin Calcium (LIPItor 40MG) 40 mg HS PO 05/07/25 21:00 06/06/25 20:59 Heparin Sodium (Porcine) (HEParin 5,000 UNIT VIAL) 5,000 unit BID SQ 05/07/25 09:00 06/06/25 08:59 05/07/25 09:22 5,000 UNIT Hydralazine HCl (APRESOLine 20MG INJ) 10 mg Q6H PRN IV For:SBP above 160;DBP above 90 05/07/25 01:30 06/06/25 01:29 Hydromorphone HCl (DiLAUDid 0.5MG INJ) 0.25 mg Q4H PRN IVP SEVERE PAIN (7-10) 05/07/25 01:30 05/12/25 01:29 Lactated Ringer's 1,000 ml @ 100 mls/hr Q10H IV 05/07/25 01:30 06/06/25 01:29 05/07/25 01:30 75 MLS/HR Lactulose (Constulose 20gm/ 30ml Udcup) 20 gm BID PRN PO CONSTIPATION 05/07/25 01:30 06/06/25 01:29 Nitroglycerin (Nitrostat) 0.4 mg PROTOCOL PRN SL CHEST PAIN 05/07/25 01:30 06/06/25 01:29 Ondansetron HCl (zoFRAN 4MG INJ) 4 mg Q6H PRN IV NAUSEA/VOMITING 05/07/25 01:30 06/06/25 01:29 Pantoprazole Sodium (PROTonix 40MG TAB) 40 mg DAILY PO 05/07/25 09:00 06/06/25 08:59 05/07/25 09:22 40 MG Piperacillin Sod/ Tazobactam Sod (Zosyn 3.375gm+NS 50ml) 3.375 gm Q12H IV 05/07/25 03:00 05/17/25 02:59 05/07/25 03:31 3.375 GM Sodium Bicarbonate (Sodium Bicarbonate) 1,300 mg BID PO 05/07/25 11:30 06/06/25 11:29 05/07/25 11:40 1,300 MG Sodium Chloride 1,000 ml @ 150 mls/hr Q6H40M IV 05/07/25 12:30 06/06/25 12:29 Thiamine HCl (Vitamin B-1) 100 mg DAILY IVP 05/08/25 09:00 06/07/25 08:59 Vitamin B Complex/ Vit C/Folic Acid (Nephrovite Tablet) 1 cap DAILY PO 05/08/25 09:00 06/07/25 08:59 Vital Signs (last 8hr) Date Time Temp Pulse Resp B/P (MAP) Pulse Ox O2 Delivery O2 Flow Rate FiO2 05/07/25 12:28 70 20 103/57 97 Room Air* 0 21 05/07/25 10:37 71 19 108/56 96 Room Air* 0 21 05/07/25 06:24 73 13 111/75 95 Room Air* 0 21 DIAGNOSTICS / RADIOLOGY: [place] [address] IMAGING REPORT Signed PATIENT: GERALD CASE MR#: [id number] : 1950 SEX: M AGE: 74 LOCATION: [facility] ORDER 26 STATUS: REG ER REPORT#: [id number] SERVICE 25 REASON: syncope ORDERING PHYSICIAN: URIAH HICKMAN MD PROCEDURE: HEAD WO - CT HEAD/BRAIN W/O CONTRAST EXAM: Non-contrast CT examination of the Brain. CLINICAL HISTORY: Syncope. TECHNIQUE: Thin collimated axial CT images of the brain were obtained, with sagittal and coronal reformatted images also submitted. CT scan done according to ALARA (As Low as Reasonably Achievable). CONTRAST USED: None. COMPARISON: None provided. FINDINGS: No acute intracranial abnormality is present. No acute cortical infarction, hemorrhage, mass, or mass effect. Mild to moderate chronic ischemic changes secondary to small vessel disease. No hydrocephalus or abnormal extra-axial fluid collections. The posterior fossa is unremarkable. The skull base and calvarium are intact. Mild scutal mucosal disease in the paranasal sinuses. The mastoid air cells are clear bilaterally. Questionable calcified ectopia lentis in the right eye globe. Mild scarring around the left occipital scalp. IMPRESSION: No acute intracranial abnormality is present. Mild to moderate chronic ischemic changes secondary to small vessel disease. /[place] DICTATED BY: ISIDRA SALAZAR Jr., MD DATE: 05/07/25108 ELECTRONICALLY SIGNED BY: ISIDRA SALAZAR Jr., MD DATE: 05/07/25108 PATIENT: GERALD CASE MR#: [id number] : 1950 SEX: M AGE: 74 LOCATION: [facility] ORDER 43 STATUS: [facility] REPORT#: [id number] SERVICE 41 REASON: hypotension ORDERING PHYSICIAN: URIAH HICKMAN MD PROCEDURE: CXR1VW - CHEST 1VW EXAM: CR Chest, 2 View. CLINICAL HISTORY: hypotension COMPARISON: None provided. FINDINGS: LUNGS: The lungs show no infiltrate or other acute finding. PLEURAL SPACES: No evidence of pleural effusion or pneumothorax. MEDIASTINUM: The cardiomediastinal silhouette is within normal limits. BONES: No aggressive appearing osseous lesion seen. IMPRESSION: No acute cardiopulmonary pathology is evident. /[place] DICTATED BY: ISIDRA SALAZAR Jr., MD DATE: 05/07/2522 ELECTRONICALLY SIGNED BY: ISIDRA SALAZAR Jr., MD DATE: 05/07/2522 LABORATORY: [ ] Hematology Labs: Test 05/07/25 07:16 Range/Units White Blood Count 16.7 H 4.8-10.8 K/uL Red Blood Count 4.60 4.50-6.20 MIL/uL Hemoglobin 14.2 14.0-18.0 g/dL Hematocrit 42.1 42-54 % Mean Corpuscular Volume 91.5 79-99 fL Mean Corpuscular Hemoglobin 30.9 27.0-33.0 pg Mean Corpuscular Hemoglobin Concent 33.7 32.0-36.0 g/dL Red Cell Distribution Width 13.6 11.0-15.5 % Platelet Count 182 130-400 K/uL Mean Platelet Volume 11.6 H 7.5-10.5 fL Immature Granulocyte % (Auto) 0.4 0-1 % Neutrophils (%) (Auto) 71.5 40.0-77.0 % Lymphocytes (%) (Auto) 19.3 L 21.0-51.0 % Monocytes (%) (Auto) 8.6 3.0-13.0 % Eosinophils (%) (Auto) 0.0 0.0-8.0 % Basophils (%) (Auto) 0.2 0.0-5.0 % Neutrophils # (Auto) 11.9 H 1.8-7.7 K/uL Lymphocytes # (Auto) 3.2 1.0-4.8 K/uL Monocytes # (Auto) 1.4 H 0.1-1.0 K/uL Eosinophils # (Auto) 0.00 0.00-0.70 K/uL Basophils # (Auto) 0.03 0.00-0.20 K/uL Absolute Immature Granulocyte (auto 0.07 0-1 K/uL Nucleated Red Blood Cells 0.0 0.0-0.19 % Chemistry Labs: Test 05/07/25 10:06 05/07/25 09:15 05/07/25 07:16 05/06/25 23:10 Range/Units Troponin I High Sensitivity 97 *H 4-75 ng/L Whole Blood Glucose 104 70-110 MG/DL Sodium Level 138 136-145 mmol/L Potassium Level 4.7 3.5-5.1 mmol/L Chloride Level 107 101-111 mmol/L Carbon Dioxide Level 23 21-32 mmol/L Blood Urea Nitrogen 47 H 7-18 mg/dL Creatinine 3.2 H 0.5-1.3 mg/dL Glomerular Filtration Rate Calc 20 >90 mL/min Random Glucose 124 H 70-105 mg/dL Lactic Acid Level 1.8 0.8-2.5 mmol/L Total Calcium 9.2 8.5-10.1 mg/dL Phosphorus Level 3.2 2.5-4.9 mg/dL Magnesium Level 2.40 1.80-2.40 mg/dL Total Creatine Kinase 2970 *H 21-232 U/L B-Type Natriuretic Peptide 88 0-100 pg/mL Test 05/06/25 22:04 Range/Units Procalcitonin 1.53 H 0.05-0.5 ng/mL ASSESSMENT: Acute on chronic renal failure Rhabdomyolysis Hypotension Syncope episode Sepsis Leukocytosis Hyperlactatemia Elevated troponin Hypertension BPH Hyperlipidemia PLAN: Labs, diagnostic, radiologic exams reviewed and interpreted by myself and supervising physician. We have reviewed external records in detail Obtain UA, urine electrolytes, urine creatinine, urine osmolality and complete renal ultrasound Start NS at 150 mL per/hr Start Nephro-Saundra daily, thiamine 100 mg IV daily Require close monitoring of renal function and electrolytes Order CBC, CMP, uric acid, TSH,CK, and electrolytes in am BiPAP as necessary, for respiratory distress Monitor blood pressure adjust medication doses as needed Avoid hypotensive episodes May use Dilaudid 0.5 mg IV every 6 hours as needed for severe pain Monitor blood sugars Strict intake, output, and daily weight should be monitored Please renally adjust medications Avoid nephrotoxic and nonsteroidal drugs Avoid contrast if possible Will continue to monitor renal function, anemia, electrolytes Treatment plan discussed with patient Questions were answered We have discussed with the other team physicians in detail about the care plan We will continue to monitor the patient closely Thank you for allowing us to participate in the care of this patient ATTESTATION BY PHYSICIAN I have seen and examined the patient. I reviewed the documentation, medical decision making, and treatment plan as noted by the mid-level provider above. I agree with the findings and plan of care. PELON CENTENO MD, [facility] May 07, 2025 13:40 PELON CENTENO MD May 07, 2025 19:54
--- NOTE | 2025-05-07 14:56 | NUR ---
DCP: HOME Sw met with pt who states he and his Candi [phone] live at the home of their daughter Merry Serna [phone]. Pt reports that he is driving, independent of his ADLS, his no DM or in home care services. No HD. PCP is Jeanine Pedersen and uses [facility] for rx. DCP is home, he denies need for SNF. Addendum: 05/07/25 at 1504 by KIMBERLY FLORES SS Amended: Links added.
--- NOTE | 2025-05-07 19:23 | NUR ---
PT CARE ASSUMED AT THIS TIME
--- NOTE | 2025-05-07 22:22 | HMCIMG ---
EXAM: US Retroperitoneum Complete, Renal. CLINICAL HISTORY: Decreased renal function. TECHNIQUE: Real-time ultrasound of the retroperitoneum (complete) with image documentation. COMPARISON: None provided. FINDINGS: RIGHT KIDNEY: Measures 12.5 x 6.0 x 6.6 cm. Cortical echotexture within normal limits. Simple cyst in the cortex measuring 1.1 x 1.3 x 1.1 cm. No hydronephrosis. LEFT KIDNEY: Measures 10.0 x 5.3 x 5.8 cm. Cortical echotexture preserved. Hyperechoic lesion measuring 13 x 9 mm, likely representing an angiomyolipoma. No hydronephrosis. BLADDER: Wall thickness: 3 mm. Not fully distended at the time of scan. IMPRESSION: 1. No hydronephrosis. 2. Right renal simple cyst (1.1 cm). 3. 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 4. Urinary bladder incompletely distended, wall thickness 3 mm. /[place]
--- NOTE | 2025-05-07 23:29 | HMCSR ---
APPROVED REPORT EXAM: Two-dimensional and M-mode echocardiogram with Doppler and color Doppler. INDICATION ICD: R42 Dizziness 2D Dimensions RVDd4.2 cmLVOT diam2.3 (1.8-2.4cm)LVED Vol(simp.)88.0 mL IVC diam2.2 cmLVES Vol(simp.)30.0 mL LVEF(%, simp.)66 % LA ESV INDEX (BP)25.20 mL/m2 Deformation Strain Apical 4-20.4 % Apical 2-19.8 % Apical 3-18.2 % Global Strain-19.5 % M-Mode Dimensions LA (MM)4.1 (1.6-4.0cm) Ao Root(MM)4.2 (2.0-3.7cm) Aortic Valve AoV Vmax1.2 m/Jyothi Peak GR6.2 mmHgLVOT Vmax1.2 m/s AoV VTI0.3 mAo Mean GR3.6 mmHgLVOT VTI0.28 m CORTNEY (VMAX)4.19 cm2AVA (VTI) 4.0 cm2 Mitral Valve MV E Igsu509.5 cm/sDECEL Aigr886 ms MV A Vmax83.5 cm/sP 1/2 T47 ms E/A ratio1.2MVA (PHT)4.7 cm2 TDI E/E' Knhlbg88.2E/E' Ldqaxdd84.4 Medial E' Peak V8.32 cm/sLateral E' Peak V7.04 cm/s Pulmonary Valve PV Vmax1.2 m/sPV VTI0.27 mPV Mean GR3.5 mmHg PV Peak GR6.2 mmHg Tricuspid Valve TR Vmax2.3 m/sRAP (EST) 3 esHiWKUV70.2 mmHg TR Peak GR23.2 mmHg Left Ventricle The left ventricle is normal size. There is normal LV segmental wall motion. Mild concentric left kendall tricular hypertrophy. Left ventricle systolic function is normal, estimated LVEF is 60 to 65%. Grade 1 diastolic dysfunction. Right Ventricle The right ventricle is normal size. The right ventricular systolic function is normal. Atria The left atrium size is normal. The right atrium size is normal. Aortic Valve Mild aortic annulus calcification is noted. Aortic valve is trileaflet. The leaflets are mildly thick ened and calcified. Trace aortic regurgitation. There is no aortic valvular stenosis. Mitral Valve The mitral valve is normal in structure. Trace mitral regurgitation. There is no mitral valve stenosi s. Tricuspid Valve The tricuspid valve is normal in structure. Trace tricuspid regurgitation. RVSP is 23 mmHg. Pulmonic Valve Pulmonic valve is not well visualized. Great Vessels The aortic root is normal in size. The IVC is normal in size and collapses >50% with inspiration. Pericardium There is no pericardial effusion. Other Information Quality : Technically difficult study due to body habitus Conclusion The cardiac chambers are normal in size. Mild concentric left ventricular hypertrophy. There is normal LV segmental wall motion. Left ventricle systolic function is normal, estimated LVEF is 60 to 65%. Grade 1 diastolic dysfunction. Trace aortic regurgitation. Trace mitral regurgitation. Trace tricuspid regurgitation. PASP is 26 mmHg. There is no pericardial effusion.
[2025-05-08] VITALS (11 sets, daily range): BP systolic 120–172; BP diastolic 72–101; PULSE 67–84; RESP 18–19; TEMP 97.8–98.4; O2SAT 95–97
--- NOTE | 2025-05-08 00:30 | NUR ---
REPORT GIVEN TO CELSA BLOCK AT THIS TIME
[2025-05-08 06:58] LABS: CREATININE 2.0 mg/dL (0.5-1.3); GLOMERULAR FILTR. RATE CALC 34.0 mL/min (>90); GLUCOSE,RANDOM 102.0 mg/dL (70-105); PHOSPHORUS 3.0 mg/dL (2.5-4.9); SODIUM SERUM 142.0 mmol/L (136-145); UREA NITROGEN, BLOOD 37.0 mg/dL (7-18)
[2025-05-08 07:09] LABS: IMMATURE GRANULOCYTE ABSOLUTE 0.04 K/uL (0-1); NUCLEATED RED BLOOD CELLS 0.0 % (0.0-0.19); PLATELET COUNT (AUTO) 161 K/uL (130-400); RED BLOOD CELL COUNT(AUTO) 4.43 MIL/uL (4.50-6.20); RED CELL DISTRIBUTION WIDTH 13.9 % (11.0-15.5); WHITE BLOOD COUNT (AUTO) 13.0 K/uL (4.8-10.8)
[2025-05-08 07:18] LABS: ASPARTATE AMINOTRANSFERASE 70.0 U/L (10-37); TOTAL PROTEIN, SERUM 5.8 g/dL (6.0-8.3)
[2025-05-08 07:22] LABS: CREATINE KINASE, TOTAL 1965.0 U/L (21-232)
[2025-05-08] MEDS: Vitamin B Complex/Vit C/Folic Acid PO SCH (08:31)
[2025-05-08] MEDS: THIAMINE HCL 100 MG/ML 2ML VIAL IVP SCH (08:31)
--- NOTE | 2025-05-08 09:27 | HMCIMG ---
EXAMINATION: DUPLEX ULTRASOUND EXAMINATION OF THE BILATERAL CAROTID AND VERTEBRAL ARTERIES. CLINICAL HISTORY: Dizziness. COMPARISON: CT head without contrast dated 05/06/2025. TECHNIQUE: Real-time ultrasound scan of the bilateral carotid and vertebral arteries, 2-D grayscale, with color Doppler flow and spectral waveform analysis. FINDINGS: Color and spectral Doppler interrogation of the carotid vessels on the right demonstrate peak systolic velocities as follows: CCA (Proximal and distal): 124 and 121 cm/s respectively. Bulb: 96 cm/s. ECA: 176 cm/s. ICA (Proximal, mid, and distal): 78, 58, and 68 cm/s respectively. Vertebral artery demonstrates antegrade flow: 50 cm/s. Right ICA/CCA ratio: 1.0 Peak systolic velocities on the left are as follows: CCA (Proximal, mid, and distal): 78, 81, and 92 cm/s respectively. Bulb: 79 cm/s. ECA: 173 cm/s. ICA (Proximal, mid, and distal): 78, 81, and 92 cm/s respectively. Vertebral artery demonstrates antegrade flow: 00 cm/s. Left ICA/CCA ratio: 1.0 Both the common carotid arteries and their branches reveal mild intimal thickening. There are small calcified plaques in the bilateral distal common carotid arteries and carotid bulb without significant stenosis. There is a calcified plaque in the left proximal external carotid artery causing about 50% to 69% diameter stenosis. There are raised velocities in the bilateral external carotid artery. IMPRESSION: Mild intimal thickening in the bilateral carotid arteries and their branches. Calcified plaques as described. There is no significant flow limiting lesions in the remainder of the arteries. Raised velocities in the bilateral external carotid artery. /Patriot
--- NOTE | 2025-05-08 09:37 | PN ---
[facility] PROGRESS NOTE Date of Service: May 08, 2025 Time of Service: 09:35 SUBJECTIVE: [ ] Patient came to the emergency department with a chief complaint of syncope. Onset was 05/06/2025. Location is head. Duration is on and off. Patient reports one episode. Character is described as, "like I just passed out and fell asleep. "There was no alleviating factors. Symptoms are aggravated with the changing a light bulb in a hot attic. Patient reports associated loss of consciousness. Today in the emergency department patient arrived with a blood pressure of 82/51 that responded well to 2 L of 0.9% NS. Additionally heart rate was 117, respirations 25 together with WBCs of 19.2 lactic acid 3.3 patient met clinical sepsis criteria. Patient has a left shift neutrophils 81.9%, BUN 43, creatinine 4.1, lactic acid 3.3, CK 2499, troponin elevated at 107.5, chest x-ray is unremarkable 05/08/25 patient was seen earlier. Patient is lying in bed patient denied dizziness body aches body cramps. Pressure is much better and controlled. Patient continues with elevated CK continues with IV fluids for hydration. Patient denies chest pain events overnight. REVIEW OF SYSTEMS CONSTITUTIONAL: Denies fevers, chills, or night sweats. No unintentional weight loss reported. NEUROLOGICAL: Denies headache, amaurosis fugax, motor weakness, sensory deficit, vertigo/spinning sensation, gait abnormalities, or tremors. ENT: No hearing loss, otalgia, otorrhea, rhinitis, rhinorrhea, hoarseness, or sore throat. CARDIOVASCULAR: Denies any exertional angina, dyspnea on exertion, orthopnea, paroxysmal nocturnal dyspnea, palpitations, life-threatening arrhythmias, claudication. PULMONARY: Denies any shortness of breath, cough, phlegm/sputum, hemoptysis, pleuritic chest pain. SLEEP: Denies morning headaches, daytime somnolence or napping. Denies difficulty falling asleep, staying asleep, waking from sleep. Denies knowledge of snoring. GASTROINTESTINAL: Denies any type of dysphagia to either liquids or solids. Denies nausea, vomiting, pyrosis, early satiety, abdominal pain, diarrhea, constipation, or changes in stool consistency or caliber. Denies coffee-ground emesis, hematemesis, hematochezia, or melanotic stools. GENITOURINARY: Denies frequency, urgency, nocturia, hematuria or incontinence (Storage/Irritative symptoms.) Low urinary stream, straining to void, urinary intermittency or hesitancy, splitting of the voiding stream, terminal dribbling. ENDOCRINOLOGIC: Denies polyuria, polydipsia, polyphagia or heat/cold intolerances. HEMATOLOGIC: Denies thrombophilia/previous clots, or coagulopathy/bleeding disorders. ONCOLOGIC: Denies personal history of malignancy. DERMATOLOGIC: Denies rashes or pruritus. PSYCHIATRIC: Denies any suicidal or homicidal ideation. Denies hallucinations. PHYSICAL EXAM GENERAL APPEARANCE: The patient is awake, alert, and oriented, in no acute cardiopulmonary distress. NEUROLOGICAL: Cranial nerves II-XII grossly intact. Motor is 5/5 in bilateral upper and lower extremities proximal to distal. No sensory deficits. HEENT: Face is symmetric. Pupils are equal and reactive. Extraocular movements are intact. NECK: Supple. No JVD. No thyromegaly. No submental, submandibular, pre- /postauricular, occipital or supraclavicular lymphadenopathy. CHEST: Normal chest expansion. No Telemetry. LUNGS: Absence of any rales, rhonchi or any wheezing. CARDIOVASCULAR: Regular. S1 and S2 normal. No appreciable rubs, murmurs or gallops. ABDOMEN: Soft, nontender, and nondistended. There is no rebound, voluntary guarding, or rigidity. : Deferred. No Grimes. EXTREMITIES: Non-edematous and not cyanotic. No clubbing. Good capillary refill. SKIN: No skin breakdown. Vital Signs (last 8hr) Date Time Temp Pulse Resp B/P (MAP) Pulse Ox O2 Delivery O2 Flow Rate FiO2 05/08/25 07:53 98.4 69 19 128/77 95 Room Air 05/08/25 03:52 84 145/82 05/08/25 03:52 72 152/82 05/08/25 03:52 98.2 77 19 120/81 94 Room Air LABS: Laboratory: Test 05/08/25 06:31 05/07/25 16:22 05/07/25 09:15 05/07/25 07:16 Range/Units White Blood Count 13.0 H 4.8-10.8 K/uL Red Blood Count 4.43 L 4.50-6.20 MIL/uL Hemoglobin 13.6 L 14.0-18.0 g/dL Hematocrit 42.0 42-54 % Mean Corpuscular Volume 94.8 79-99 fL Mean Corpuscular Hemoglobin 30.7 27.0-33.0 pg Mean Corpuscular Hemoglobin Concent 32.4 32.0-36.0 g/dL Red Cell Distribution Width 13.9 11.0-15.5 % Platelet Count 161 130-400 K/uL Mean Platelet Volume 11.3 H 7.5-10.5 fL Immature Granulocyte % (Auto) 0.3 0-1 % Neutrophils (%) (Auto) 62.3 40.0-77.0 % Lymphocytes (%) (Auto) 28.0 21.0-51.0 % Monocytes (%) (Auto) 7.4 3.0-13.0 % Eosinophils (%) (Auto) 1.5 0.0-8.0 % Basophils (%) (Auto) 0.5 0.0-5.0 % Neutrophils # (Auto) 8.1 H 1.8-7.7 K/uL Lymphocytes # (Auto) 3.6 1.0-4.8 K/uL Monocytes # (Auto) 1.0 0.1-1.0 K/uL Eosinophils # (Auto) 0.20 0.00-0.70 K/uL Basophils # (Auto) 0.06 0.00-0.20 K/uL Absolute Immature Granulocyte (auto 0.04 0-1 K/uL Nucleated Red Blood Cells 0.0 0.0-0.19 % Sodium Level 142 136-145 mmol/L Potassium Level 4.5 3.5-5.1 mmol/L Chloride Level 112 H 101-111 mmol/L Carbon Dioxide Level 27 21-32 mmol/L Blood Urea Nitrogen 37 H 7-18 mg/dL Creatinine 2.0 H 0.5-1.3 mg/dL Glomerular Filtration Rate Calc 34 >90 mL/min Random Glucose 102 70-105 mg/dL Uric Acid 6.3 2.6-7.2 mg/dL Total Calcium 8.4 L 8.5-10.1 mg/dL Phosphorus Level 3.0 2.5-4.9 mg/dL Magnesium Level 2.10 1.80-2.40 mg/dL Total Bilirubin 0.5 0.2-1.0 mg/dL Aspartate Amino Transf (AST/SGOT) 70 H 10-37 U/L Alanine Aminotransferase (ALT/SGPT) 59 12-78 U/L Alkaline Phosphatase 43 L 50-136 U/L Total Creatine Kinase 1965 #*H 21-232 U/L Total Protein 5.8 L 6.0-8.3 g/dL Albumin 2.8 L 3.5-5.0 g/dL Thyroid Stimulating Hormone (TSH) 1.83 0.36-3.74 uIU/mL Troponin I High Sensitivity 77 *H 4-75 ng/L Whole Blood Glucose 104 70-110 MG/DL Lactic Acid Level 1.8 0.8-2.5 mmol/L Test 05/07/25 01:52 05/07/25 01:11 05/07/25 00:14 05/06/25 23:10 Range/Units Urine Color YELLOW YELLOW Urine Appearance CLOUDY H CLEAR Urine pH 5.0 5.0-8.0 Urine Specific [place] 1.016 1.001-1.031 Urine Protein 10 H NEGATIVE mg/dL Urine Glucose (UA) NEGATIVE NEGATIVE mg/dL Urine Ketones 5 H NEGATIVE mg/dL Urine Occult Blood +- (TRACE) H NEGATIVE Urine Nitrate NEGATIVE NEGATIVE Urine Bilirubin NEGATIVE NEGATIVE mg/dL Urine Urobilinogen 0.2 0.2-1.0 mg/dL Urine Leukocyte Esterase 25 H NEGATIVE Lise/uL Urine RBC 2-5 H 0-1 /HPF Urine WBC 2-5 H 0-1 /HPF Urine Squamous Epithelial Cells FEW 0-2 /HPF Urine Amorphous Crystals (Auto) RARE None Seen /LPF Urine Bacteria RARE None Seen /HPF Urine Hyaline Casts 2-5 H 0-1 /LPF /LPF Urine Osmolality 370 50-1200 mOsm/kg Urine Random Creatinine 342.79 H 30-135 mg/dL Urine Random Sodium 19 L 40-220 mmol/l Urine Random Potassium 66 25-125 mmol/L Urine Random Chloride 31 L 110-250 mmol/L Influenza Type A Antigen Negative For Type A NEGATIVE Influenza Type B Antigen Negative For Type B NEGATIVE SARS-CoV-2 Antigen (Rapid) PRESUMPTIVE NEGATIVE NEGATIVE Blood Gas Specimen Type Arterial Arterial Blood pH 7.333 L 7.350-7.450 Arterial Blood Partial Pressure CO2 32 L 35-48 mmHg Arterial Blood Partial Pressure O2 75.0 L 83.0-108.0 mmHg Arterial Blood HCO3 16.7 L 21.0-28.0 mmol/L Arterial Blood Oxygen Saturation 94.4 94.0-98.0 % Arterial Blood Base Excess -7.9 L -2.0-3.0 mmol/L Blood Gas Temperature 37.0 35.5-37.0 CELSIUS Blood Gas Vent Mode ROOMAIR ROOM AIR FiO2 21.0 % Blood Gas Specimen Comment RB B-Type Natriuretic Peptide 88 0-100 pg/mL Test 05/06/25 22:04 Range/Units Procalcitonin 1.53 H 0.05-0.5 ng/mL Current Medications Medications (Trade) Dose Ordered Sig/Dale Route PRN Reason Start Time Stop Time Status Last Admin Dose Admin Acetaminophen (TYLenol 325MG TAB) 650 mg Q6H PRN PO TEMPERATURE GREATER THAN 101.5 05/07/25 01:30 06/06/25 01:29 Aspirin (Aspirin 81mg Ec Tab) 81 mg DAILY PO 05/07/25 09:00 06/06/25 08:59 05/08/25 08:31 81 MG Atorvastatin Calcium (LIPItor 40MG) 40 mg HS PO 05/07/25 21:00 06/06/25 20:59 05/07/25 22:08 40 MG Heparin Sodium (Porcine) (HEParin 5,000 UNIT VIAL) 5,000 unit BID SQ 05/07/25 09:00 06/06/25 08:59 05/08/25 08:32 5,000 UNIT Hydralazine HCl (APRESOLine 20MG INJ) 10 mg Q6H PRN IV For:SBP above 160;DBP above 90 05/07/25 01:30 06/06/25 01:29 Hydromorphone HCl (DiLAUDid 0.5MG INJ) 0.25 mg Q4H PRN IVP SEVERE PAIN (7-10) 05/07/25 01:30 05/12/25 01:29 Lactated Ringer's 1,000 ml @ 100 mls/hr Q10H IV 05/07/25 01:30 05/07/25 23:28 DC 05/07/25 13:25 100 MLS/HR Lactulose (Constulose 20gm/ 30ml Udcup) 20 gm BID PRN PO CONSTIPATION 05/07/25 01:30 06/06/25 01:29 Nitroglycerin (Nitrostat) 0.4 mg PROTOCOL PRN SL CHEST PAIN 05/07/25 01:30 06/06/25 01:29 Ondansetron HCl (zoFRAN 4MG INJ) 4 mg Q6H PRN IV NAUSEA/VOMITING 05/07/25 01:30 06/06/25 01:29 Pantoprazole Sodium (PROTonix 40MG TAB) 40 mg DAILY PO 05/07/25 09:00 06/06/25 08:59 05/08/25 08:31 40 MG Piperacillin Sod/ Tazobactam Sod (Zosyn 3.375gm+NS 50ml) 3.375 gm Q12H IV 05/07/25 03:00 05/17/25 02:59 05/08/25 02:34 3.375 GM Sodium Bicarbonate (Sodium Bicarbonate) 1,300 mg BID PO 05/07/25 11:30 06/06/25 11:29 05/08/25 08:31 1,300 MG Sodium Chloride 1,000 ml @ 150 mls/hr Q6H40M IV 05/07/25 12:30 06/06/25 12:29 05/08/25 01:11 150 MLS/HR Thiamine HCl (Vitamin B-1) 100 mg DAILY IVP 05/08/25 09:00 06/07/25 08:59 05/08/25 08:31 100 MG Vitamin B Complex/ Vit C/Folic Acid (Nephrovite Tablet) 1 cap DAILY PO 05/08/25 09:00 06/07/25 08:59 05/08/25 08:31 1 CAP DIAGNOSTICS / RADIOLOGY: [ ] ASSESSMENT: autonomic imbalance POA gram positive bacteremia POA Hypotension, POA resolved Syncope episode, POA Sepsis, POA Leukocytosis, POA Hyperlactatemia, POA Elevated troponin, POA Rhabdomyolysis, POA TRACEY on CKD, POA, improving Hypertension BPH Hyperlipidemia Severe protein calorie malnutrition POA PLAN: [ ] This is a 74-year-old male that presents in ED with episode of feeling faint workup of ER was consistent with sepsis. WBCs are trending down troponins are trending down. CK elevated however is also trending down. BUN and creatinine also trending down 37 BUN and creatinine 2.0 bicarb was given yesterday. Waiting for blood cultures. Admit patient to medical floor with telemetry Hypotension: Resolved Syncope episode: Check orthostatic vital signs once per shift Fall precautions Ultrasound carotid Doppler, noted 2D echo, normal LV function 60-65%. Sepsis, leukocytosis, hyperlactatemia: ID on board blood cultures growing positive cocci repeat 2nd set of blood cultures. Continues on Zosyn IV we will wait for ID recommendations. We will follow-up on blood cultures Elevated troponin: Continue aspirin Troponins 20 down patient no chest pain on admission or overnight. Nitroglycerin sublingual 0.4 mg as needed for chest pain every 5 minutes, max 3 doses, hold for systolic blood pressure less than 100 mmHg. Supplemental oxygen to maintain O2 saturation greater than 92% Rhabdomyolysis: Continue IV fluids LR at 100 mL/hour Repeat CK in a.m. TRACEY on CKD: Metabolic acidosis Continues on bicarb p.o. Drawing In Hand's following. Avoid nephrotoxic agents when possible Renally dose all medications when possible Hypertension, BPH, hyperlipidemia: Resume home medication blood pressure medication Flomax. At time of admission home medications has been reconciled. Atorvastatin 40 mg by mouth once daily. GI prophylaxis, Protonix DVT prophylaxis, heparin ATTESTATION BY PHYSICIAN I have seen and examined the patient. I reviewed the documentation, medical decision making, and treatment plan as noted by the mid-level provider above. I agree with the findings and plan of care. JANIYA MANCUSO MD, ELIZABETH NP May 08, 2025 09:37
--- NOTE | 2025-05-08 11:50 | PN ---
NEPHROLOGY PROGRESS NOTE Date/Time Patient Seen: May 08, 2025 SUBJECTIVE: This is a 74-year-old male with a past medical history of chronic kidney disease, hypertension, BPH, hyperlipidemia, right eye blindness. Presented to emergency room complaints of syncope. Patient states he was found in the hot attic. CK on admission was 2,199 U/L Imaging studies were noted Urine was positive for proteinuria. He was noted to have elevated BUN/creatinine We are consulted for renal failure and rhabdomyolysis. Renal function is improving Electrolytes are stable. Renal ultrasound was noted CK level is improving, 1,965 U/L today He continues on gentle IV hydration Blood cultures positive for Gram-positive cocci, pending ID recommendations Nurse reports hypertension He was seen in the medical floor, in no acute distress No family at the bedside Prognosis remains guarded REVIEW OF SYSTEMS: GENERAL: Positive for generalized weakness NEUROLOGIC: Negative for any blurry vision, blind spots, double vision, facial asymmetry, dysphagia, dysarthria, hemiparesis, hemisensory deficits, vertigo, ataxia. HEENT: Negative for any head trauma, neck trauma, neck stiffness, photophobia, phonophobia, sinusitis, rhinitis. CARDIAC: Negative for any chest pain, dyspnea on exertion, paroxysmal nocturnal dyspnea, peripheral edema. PULMONARY: Negative for any shortness of breath, wheezing, COPD, or TB exposure. GASTROINTESTINAL: Negative for any abdominal pain, nausea, vomiting, bright red blood per rectum, melena. GENITOURINARY: Negative for any dysuria, hematuria, incontinence. INTEGUMENTARY: Negative for any rashes, cuts, insect bites. RHEUMATOLOGIC: Negative for any joint pains, photosensitive rashes, history of vasculitis or kidney problems. HEMATOLOGIC: Negative for any abnormal bruising, frequent infections or bleeding. Vital Signs (last 8hr) Date Time Temp Pulse Resp B/P (MAP) Pulse Ox O2 Delivery O2 Flow Rate FiO2 05/08/25 11:28 69 146/82 05/08/25 11:26 79 161/100 96 05/08/25 11:25 79 172/101 98 05/08/25 11:24 98.1 76 18 162/93 98 Room Air 05/08/25 07:53 98.4 69 19 128/77 95 Room Air 05/08/25 03:52 84 145/82 05/08/25 03:52 72 152/82 05/08/25 03:52 98.2 77 19 120/81 94 Room Air PHYSICAL EXAM: GENERAL: Alert and oriented x 3. No acute distress. Well-nourished. EYES: EOMI. Anicteric. HENT: Moist mucous membranes. No scleral icterus. No cervical lymphadenopathy. LUNGS: Clear to auscultation bilaterally. No accessory muscle use. CARDIOVASCULAR: Regular rate and rhythm. No murmur. No JVD. ABDOMEN: Soft, non-tender and non-distended. No palpable masses. EXTREMITIES: No edema. Non-tender SKIN: No rashes or lesions. Warm. NEUROLOGIC: No focal neurological deficits. CN II-XII grossly intact, but not individually tested. PSYCHIATRIC: Cooperative. Appropriate mood and affect. Current Medications Medications (Trade) Dose Ordered Sig/Dale Route Start Time Stop Time Status Last Admin Dose Admin Amlodipine Besylate (NorvASC 5MG TAB) 5 mg DAILY PO 05/09/25 09:00 06/08/25 08:59 Aspirin (Aspirin 81mg Ec Tab) 81 mg DAILY PO 05/07/25 09:00 06/06/25 08:59 05/08/25 08:31 81 MG Atorvastatin Calcium (LIPItor 40MG) 40 mg HS PO 05/07/25 21:00 06/06/25 20:59 05/07/25 22:08 40 MG EZETIMIBE (Zetia) 10 mg DAILY PO 05/09/25 09:00 06/08/25 08:59 Fish Oil (Fish Oil 1000 Mg/Cap) 2,000 mg BID PO 05/08/25 21:00 06/07/25 20:59 Heparin Sodium (Porcine) (HEParin 5,000 UNIT VIAL) 5,000 unit BID SQ 05/07/25 09:00 06/06/25 08:59 05/08/25 08:32 5,000 UNIT Home Med (Home Medication) (Dutasteride 1 CAP) DAILY PO 05/09/25 09:00 06/08/25 08:59 Labetalol HCl (TRANdate 100 MG TABLET) 100 mg BID PO 05/08/25 21:00 06/07/25 20:59 Lactated Ringer's 1,000 ml @ 100 mls/hr Q10H IV 05/07/25 01:30 05/07/25 23:28 DC 05/07/25 13:25 100 MLS/HR Losartan Potassium (CozAAR 100MG TAB) 100 mg DAILY PO 05/09/25 09:00 06/08/25 08:59 Miscellaneous Medication (Pravastatin Sodium ) 80 mg DAILY PO 05/09/25 09:00 05/08/25 09:45 DC Montelukast Sodium (SinguLAIR) 10 mg DAILY PO 05/09/25 09:00 06/08/25 08:59 Pantoprazole Sodium (PROTonix 40MG TAB) 40 mg DAILY PO 05/07/25 09:00 06/06/25 08:59 05/08/25 08:31 40 MG Piperacillin Sod/ Tazobactam Sod (Zosyn 3.375gm+NS 50ml) 3.375 gm Q12H IV 05/07/25 03:00 05/17/25 02:59 05/08/25 02:34 3.375 GM Sodium Bicarbonate (Sodium Bicarbonate) 1,300 mg BID PO 05/07/25 11:30 06/06/25 11:29 05/08/25 08:31 1,300 MG Sodium Chloride 1,000 ml @ 150 mls/hr Q6H40M IV 05/07/25 12:30 06/06/25 12:29 05/08/25 01:11 150 MLS/HR Spironolactone (Aldactone 25mg) 25 mg DAILY PO 05/09/25 09:00 06/08/25 08:59 Thiamine HCl (Vitamin B-1) 100 mg DAILY IVP 05/08/25 09:00 06/07/25 08:59 05/08/25 08:31 100 MG Vitamin B Complex/ Vit C/Folic Acid (Nephrovite Tablet) 1 cap DAILY PO 05/08/25 09:00 06/07/25 08:59 05/08/25 08:31 1 CAP LABORATORY: [ ] Hematology Labs: Test 05/08/25 06:31 Range/Units White Blood Count 13.0 H 4.8-10.8 K/uL Red Blood Count 4.43 L 4.50-6.20 MIL/uL Hemoglobin 13.6 L 14.0-18.0 g/dL Hematocrit 42.0 42-54 % Mean Corpuscular Volume 94.8 79-99 fL Mean Corpuscular Hemoglobin 30.7 27.0-33.0 pg Mean Corpuscular Hemoglobin Concent 32.4 32.0-36.0 g/dL Red Cell Distribution Width 13.9 11.0-15.5 % Platelet Count 161 130-400 K/uL Mean Platelet Volume 11.3 H 7.5-10.5 fL Immature Granulocyte % (Auto) 0.3 0-1 % Neutrophils (%) (Auto) 62.3 40.0-77.0 % Lymphocytes (%) (Auto) 28.0 21.0-51.0 % Monocytes (%) (Auto) 7.4 3.0-13.0 % Eosinophils (%) (Auto) 1.5 0.0-8.0 % Basophils (%) (Auto) 0.5 0.0-5.0 % Neutrophils # (Auto) 8.1 H 1.8-7.7 K/uL Lymphocytes # (Auto) 3.6 1.0-4.8 K/uL Monocytes # (Auto) 1.0 0.1-1.0 K/uL Eosinophils # (Auto) 0.20 0.00-0.70 K/uL Basophils # (Auto) 0.06 0.00-0.20 K/uL Absolute Immature Granulocyte (auto 0.04 0-1 K/uL Nucleated Red Blood Cells 0.0 0.0-0.19 % Chemistry Labs: Test 05/08/25 06:31 05/07/25 16:22 05/07/25 09:15 05/07/25 07:16 Range/Units Sodium Level 142 136-145 mmol/L Potassium Level 4.5 3.5-5.1 mmol/L Chloride Level 112 H 101-111 mmol/L Carbon Dioxide Level 27 21-32 mmol/L Blood Urea Nitrogen 37 H 7-18 mg/dL Creatinine 2.0 H 0.5-1.3 mg/dL Glomerular Filtration Rate Calc 34 >90 mL/min Random Glucose 102 70-105 mg/dL Uric Acid 6.3 2.6-7.2 mg/dL Total Calcium 8.4 L 8.5-10.1 mg/dL Phosphorus Level 3.0 2.5-4.9 mg/dL Magnesium Level 2.10 1.80-2.40 mg/dL Total Bilirubin 0.5 0.2-1.0 mg/dL Aspartate Amino Transf (AST/SGOT) 70 H 10-37 U/L Alanine Aminotransferase (ALT/SGPT) 59 12-78 U/L Alkaline Phosphatase 43 L 50-136 U/L Total Creatine Kinase 1965 #*H 21-232 U/L Total Protein 5.8 L 6.0-8.3 g/dL Albumin 2.8 L 3.5-5.0 g/dL Thyroid Stimulating Hormone (TSH) 1.83 0.36-3.74 uIU/mL Troponin I High Sensitivity 77 *H 4-75 ng/L Whole Blood Glucose 104 70-110 MG/DL Lactic Acid Level 1.8 0.8-2.5 mmol/L Test 05/06/25 23:10 05/06/25 22:04 Range/Units B-Type Natriuretic Peptide 88 0-100 pg/mL Procalcitonin 1.53 H 0.05-0.5 ng/mL DIAGNOSTICS / RADIOLOGY: [address] [address] IMAGING REPORT Signed PATIENT: GERALD CASE MR#: [id number] : 1950 SEX: M AGE: 74 LOCATION: [facility] ORDER 1342 STATUS: ADM IN REPORT#: [id number] SERVICE 1341 REASON: Decreased renal function ORDERING PHYSICIAN: BENNETT FUNES PROCEDURE: RENAL - US RENAL SONOGRAM EXAM: US Retroperitoneum Complete, Renal. CLINICAL HISTORY: Decreased renal function. TECHNIQUE: Real-time ultrasound of the retroperitoneum (complete) with image documentation. COMPARISON: None provided. FINDINGS: RIGHT KIDNEY: Measures 12.5 x 6.0 x 6.6 cm. Cortical echotexture within normal limits. Simple cyst in the cortex measuring 1.1 x 1.3 x 1.1 cm. No hydronephrosis. LEFT KIDNEY: Measures 10.0 x 5.3 x 5.8 cm. Cortical echotexture preserved. Hyperechoic lesion measuring 13 x 9 mm, likely representing an angiomyolipoma. No hydronephrosis. BLADDER: Wall thickness: 3 mm. Not fully distended at the time of scan. IMPRESSION: 1. No hydronephrosis. 2. Right renal simple cyst (1.1 cm). 3. 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 4. Urinary bladder incompletely distended, wall thickness 3 mm. /[place] DICTATED BY: RAMILA GILES MD DATE: 05/07/252320 ELECTRONICALLY SIGNED BY: RAMILA GILES MD DATE: 05/07/252320 PATIENT: GERALD CASE MR#: [id number] : 1950 SEX: M AGE: 74 LOCATION: [facility] ORDER 4 STATUS: ADM IN REPORT#: [id number] SERVICE REASON: dizziness ORDERING PHYSICIAN: JOHN CHAMPION PROCEDURE: ECHO CMP - ECHO 2-D COMPLETE APPROVED REPORT EXAM: Two-dimensional and M-mode echocardiogram with Doppler and color Doppler. INDICATION ICD: R42 Dizziness 2D Dimensions RVDd 4.2 cm LVOT diam 2.3 (1.8-2.4cm) LVED Vol(simp.) 88.0 mL IVC diam 2.2 cm LVES Vol(simp.) 30.0 mL LVEF(%, simp.) 66 % LA ESV INDEX (BP) 25.20 mL/m2 Deformation Strain Apical 4 -20.4 % Apical 2 -19.8 % Apical 3 -18.2 % Global Strain -19.5 % M-Mode Dimensions LA (MM) 4.1 (1.6-4.0cm) Ao Root(MM) 4.2 (2.0-3.7cm) Aortic Valve AoV Vmax 1.2 m/s Ao Peak GR 6.2 mmHg LVOT Vmax 1.2 m/s AoV VTI 0.3 m Ao Mean GR 3.6 mmHg LVOT VTI 0.28 m CORTNEY (VMAX) 4.19 cm2 CORTNEY (VTI) 4.0 cm2 Mitral Valve MV E Vmax 101.5 cm/s DECEL Time 236 ms MV A Vmax 83.5 cm/s P 1/2 T 47 ms E/A ratio 1.2 MVA (PHT) 4.7 cm2 TDI E/E' Medial 12.2 E/E' Lateral 14.4 Medial E' Peak V 8.32 cm/s Lateral E' Peak V 7.04 cm/s Pulmonary Valve PV Vmax 1.2 m/s PV VTI 0.27 m PV Mean GR 3.5 mmHg PV Peak GR 6.2 mmHg Tricuspid Valve TR Vmax 2.3 m/s RAP (EST) 3 mmHg RVSP 26.2 mmHg TR Peak GR 23.2 mmHg Left Ventricle The left ventricle is normal size. There is normal LV segmental wall motion. Mild concentric left ventricular hypertrophy. Left ventricle systolic function is normal, estimated LVEF is 60 to 65%. Grade 1 diastolic dysfunction. Right Ventricle The right ventricle is normal size. The right ventricular systolic function is normal. Atria The left atrium size is normal. The right atrium size is normal. Aortic Valve Mild aortic annulus calcification is noted. Aortic valve is trileaflet. The leaflets are mildly thickened and calcified. Trace aortic regurgitation. There is no aortic valvular stenosis. Mitral Valve The mitral valve is normal in structure. Trace mitral regurgitation. There is no mitral valve stenosis. Tricuspid Valve The tricuspid valve is normal in structure. Trace tricuspid regurgitation. RVSP is 23 mmHg. Pulmonic Valve Pulmonic valve is not well visualized. Great Vessels The aortic root is normal in size. The IVC is normal in size and collapses >50% with inspiration. Pericardium There is no pericardial effusion. Other Information Quality : Technically difficult study due to body habitus Conclusion The cardiac chambers are normal in size. Mild concentric left ventricular hypertrophy. There is normal LV segmental wall motion. Left ventricle systolic function is normal, estimated LVEF is 60 to 65%. Grade 1 diastolic dysfunction. Trace aortic regurgitation. Trace mitral regurgitation. Trace tricuspid regurgitation. PASP is 26 mmHg. There is no pericardial effusion. DICTATED BY: PETER RAY MD DATE: 05/07/2555 ELECTRONICALLY SIGNED BY: PETER RAY MD DATE: 05/07/25 8322 PATIENT: GERALD CASE MR#: [id number] : 1950 SEX: M AGE: 74 LOCATION: [facility] ORDER DT: 09/5 STATUS: ADM IN [facility] REPORT#: [id number] SERVICE 0124 REASON: dizziness ORDERING PHYSICIAN: JOHN CHAMPION PROCEDURE: CAROTID - US CAROTID DUPLEX EXAMINATION: DUPLEX ULTRASOUND EXAMINATION OF THE BILATERAL CAROTID AND VERTEBRAL ARTERIES. CLINICAL HISTORY: Dizziness. COMPARISON: CT head without contrast dated 05/06/2025. TECHNIQUE: Real-time ultrasound scan of the bilateral carotid and vertebral arteries, 2-D grayscale, with color Doppler flow and spectral waveform analysis. FINDINGS: Color and spectral Doppler interrogation of the carotid vessels on the right demonstrate peak systolic velocities as follows: CCA (Proximal and distal): 124 and 121 cm/s respectively. Bulb: 96 cm/s. ECA: 176 cm/s. ICA (Proximal, mid, and distal): 78, 58, and 68 cm/s respectively. Vertebral artery demonstrates antegrade flow: 50 cm/s. Right ICA/CCA ratio: 1.0 Peak systolic velocities on the left are as follows: CCA (Proximal, mid, and distal): 78, 81, and 92 cm/s respectively. Bulb: 79 cm/s. ECA: 173 cm/s. ICA (Proximal, mid, and distal): 78, 81, and 92 cm/s respectively. Vertebral artery demonstrates antegrade flow: 00 cm/s. Left ICA/CCA ratio: 1.0 Both the common carotid arteries and their branches reveal mild intimal thickening. There are small calcified plaques in the bilateral distal common carotid arteries and carotid bulb without significant stenosis. There is a calcified plaque in the left proximal external carotid artery causing about 50% to 69% diameter stenosis. There are raised velocities in the bilateral external carotid artery. IMPRESSION: Mild intimal thickening in the bilateral carotid arteries and their branches. Calcified plaques as described. There is no significant flow limiting lesions in the remainder of the arteries. Raised velocities in the bilateral external carotid artery. /[place] DICTATED BY: ONI CLINE MD DATE: 05/08/25 1026 ELECTRONICALLY SIGNED BY: ONI CLINE MD DATE: 05/08/25 1026 PATIENT: GERALD CASE MR#: [id number] : 1950 SEX: M AGE: 74 LOCATION: ED ORDER 26 STATUS: REG ER REPORT#: [id number] SERVICE 25 REASON: syncope ORDERING PHYSICIAN: URIAH HICKMAN MD PROCEDURE: HEAD WO - CT HEAD/BRAIN W/O CONTRAST EXAM: Non-contrast CT examination of the Brain. CLINICAL HISTORY: Syncope. TECHNIQUE: Thin collimated axial CT images of the brain were obtained, with sagittal and coronal reformatted images also submitted. CT scan done according to ALARA (As Low as Reasonably Achievable). CONTRAST USED: None. COMPARISON: None provided. FINDINGS: No acute intracranial abnormality is present. No acute cortical infarction, hemorrhage, mass, or mass effect. Mild to moderate chronic ischemic changes secondary to small vessel disease. No hydrocephalus or abnormal extra-axial fluid collections. The posterior fossa is unremarkable. The skull base and calvarium are intact. Mild scutal mucosal disease in the paranasal sinuses. The mastoid air cells are clear bilaterally. Questionable calcified ectopia lentis in the right eye globe. Mild scarring around the left occipital scalp. IMPRESSION: No acute intracranial abnormality is present. Mild to moderate chronic ischemic changes secondary to small vessel disease. /[place] DICTATED BY: ISIDRA SALAZAR Jr., MD DATE: 05/07/25108 ELECTRONICALLY SIGNED BY: ISIDRA SALAZAR Jr., MD DATE: 05/07/25108 PATIENT: GERALD CASE MR#: [id number] : 1950 SEX: M AGE: 74 LOCATION: ED ORDER 43 STATUS: REG ER REPORT#: [id number] SERVICE 41 REASON: hypotension ORDERING PHYSICIAN: URIAH HICKMAN MD PROCEDURE: CXR1VW - CHEST 1VW EXAM: CR Chest, 2 View. CLINICAL HISTORY: hypotension COMPARISON: None provided. FINDINGS: LUNGS: The lungs show no infiltrate or other acute finding. PLEURAL SPACES: No evidence of pleural effusion or pneumothorax. MEDIASTINUM: The cardiomediastinal silhouette is within normal limits. BONES: No aggressive appearing osseous lesion seen. IMPRESSION: No acute cardiopulmonary pathology is evident. /[place] DICTATED BY: ISIDRA SALAZAR Jr., MD DATE: 05/07/2522 ELECTRONICALLY SIGNED BY: ISIDRA SALAZAR Jr., MD DATE: 05/07/2522 ASSESSMENT: Acute on chronic renal failure Rhabdomyolysis Hypotension Syncope episode Sepsis Leukocytosis Hyperlactatemia Elevated troponin Hypertension BPH Hyperlipidemia PLAN: Labs, diagnostic, radiologic exams reviewed and interpreted by myself and supervising physician. We have reviewed external records in detail Decrease NS to 75 mL/hour Require close monitoring of renal function and electrolytes Order CBC, CMP,CK, and electrolytes in am BiPAP as necessary, for respiratory distress Monitor blood pressure adjust medication doses as needed Avoid hypotensive episodes May use Dilaudid 0.5 mg IV every 6 hours as needed for severe pain Monitor blood sugars Strict intake, output, and daily weight should be monitored Please renally adjust medications Avoid nephrotoxic and nonsteroidal drugs Avoid contrast if possible Will continue to monitor renal function, anemia, electrolytes Treatment plan discussed with patient Questions were answered We have discussed with the other team physicians in detail about the care plan We will continue to monitor the patient closely ATTESTATION BY PHYSICIAN I have seen and examined the patient. I reviewed the documentation, medical decision making, and treatment plan as noted by the mid-level provider above. I agree with the findings and plan of care. PELON CENTENO MD, [facility] May 08, 2025 11:50
[2025-05-08] MEDS: FISH OIL 1000 MG/CAP PO SCH (20:37)
[2025-05-09] VITALS (8 sets, daily range): BP systolic 121–141; BP diastolic 66–80; PULSE 65–74; RESP 17–20; TEMP 97.8–98.3; O2SAT 96–97
--- NOTE | 2025-05-09 02:36 | CONS ---
INFECTIOUS DISEASE CONSULTATION DATE OF SERVICE: 05/08/2025 REQUESTING PHYSICIAN: Dr. Gomez. . REASON FOR CONSULTATION: Bacteremia. HISTORY OF PRESENT ILLNESS: The patient is a 74-year-old male with chronic kidney disease, right eyelid, BPH, and hypertension who presented to the hospital with syncopal disorder. The patient claims he was working in hot [employer] and lost consciousness and passed out. He was brought to the emergency room where he was found to have possible sepsis. BP was 82/51. The patient was found with dehydration. WBC 19,000, pulse was 117. Lactic acid was also done, 3.3. Serum CPK was elevated at 1065. No hemoptysis or pleuritic pain. He has been started on Synthroid. Blood cultures growing Gram-positive cocci in pairs. PAST MEDICAL HISTORY: * Chronic kidney disease. * Right eye blindness. * Hypertension. * BPH. * Dyslipidemia. PAST SURGICAL HISTORY: Incision and drainage of neck abscess. ALLERGIES: No known drug allergies. CURRENT MEDICATIONS: Reviewed. SOCIAL HISTORY: No history of vaping or tobacco use. FAMILY HISTORY: Noncontributory. REVIEW OF SYSTEMS: CONSTITUTIONAL: No fevers, chills. No weight loss or night sweats. EYES: No eye pain. No photophobia or diplopia. HENT: No sore throat. No rhinorrhea or earache. NECK: No neck pain or neck swelling. RESPIRATORY: No cough. No hemoptysis or pleuritic pain. CARDIOVASCULAR: No chest pain. No palpitation or orthopnea. GASTROINTESTINAL: Denies nausea, vomiting or diarrhea. PSYCHIATRY: No depression, no suicidal ideation. PHYSICAL EXAMINATION: VITAL SIGNS: Temperature 98.1, pulse 69, respiratory rate 18. GENERAL: Awake, alert, and in no acute distress. EYES: No icterus. Pupils equal and reactive. HENT: No oral thrush seen. Moist oral mucosa. NECK: Supple. No JVD or thyromegaly. LUNGS: Good air entry. No rales, no rhonchi. CARDIOVASCULAR: S1 and S2 regular. No murmur heard. ABDOMEN: Full, soft, nontender. Bowel sound is present. CENTRAL NERVOUS SYSTEM: Awake, alert, oriented x 3. No focal deficits. SKIN: No rashes, no itchiness. LYMPHATIC: No peripheral lymphadenopathy. BACK: No deformity or pressure ulcer. LABORATORY DATA: Sodium 142, potassium 4.5, BUN 37, creatinine 3.4, WBC 10.0, hemoglobin 10.6, platelet 161, hep antigen negative. Blood culture growing Gram-positive cocci in pairs. ____. ASSESSMENT: A 74-year-old male. * Bacterial sepsis. * Rhabdomyolysis. * Syncope. * Renal failure. * Leukocytosis. PLAN: * Continue Zosyn. * Follow up postoperatively. * Continue anti hypertensives.. * Continue nutritional support. * Continue DVT prophylaxis. * Monitor electrolytes. * Antibiotics will be adjusted when cultures are updated or finalized. Thank you for allowing me to participate in the care of this patient. TID: [id number] RECEIPT: [id number] [facility]
[2025-05-09 05:12] LABS: IMMATURE GRANULOCYTE ABSOLUTE 0.05 K/uL (0-1); NUCLEATED RED BLOOD CELLS 0.0 % (0.0-0.19); PLATELET COUNT (AUTO) 159 K/uL (130-400); RED BLOOD CELL COUNT(AUTO) 4.29 MIL/uL (4.50-6.20); RED CELL DISTRIBUTION WIDTH 13.9 % (11.0-15.5); WHITE BLOOD COUNT (AUTO) 10.5 K/uL (4.8-10.8)
[2025-05-09 05:32] LABS: CREATININE 1.7 mg/dL (0.5-1.3); GLOMERULAR FILTR. RATE CALC 42.0 mL/min (>90); GLUCOSE,RANDOM 93.0 mg/dL (70-105); PHOSPHORUS 3.5 mg/dL (2.5-4.9); SODIUM SERUM 143.0 mmol/L (136-145); UREA NITROGEN, BLOOD 25.0 mg/dL (7-18)
[2025-05-09 05:36] LABS: ASPARTATE AMINOTRANSFERASE 44.0 U/L (10-37); TOTAL PROTEIN, SERUM 5.9 g/dL (6.0-8.3)
[2025-05-09 06:31] LABS: CREATINE KINASE, TOTAL 910.0 U/L (21-232)
[2025-05-09] MEDS: DUTASTERIDE PO SCH (08:54)
[2025-05-09] MEDS ORDERED: NON-FORMULARY MEDICATION 1 EACH (Pravastatin Sodium 80 MG) PO SCH (09:00)
[2025-05-09] MEDS: amLODIPine 5 MG TAB PO SCH (09:01)
[2025-05-09] MEDS: SPIRONOLACTONE 25 MG TAB PO SCH (09:01)
[2025-05-09] MEDS: EZETIMIBE 10 MG TAB PO SCH (09:02)
--- NOTE | 2025-05-09 10:09 | PN ---
[facility] PROGRESS NOTE Date of Service: May 09, 2025 Time of Service: 10:07 SUBJECTIVE: [ ] Patient came to the emergency department with a chief complaint of syncope. Onset was 05/06/2025. Location is head. Duration is on and off. Patient reports one episode. Character is described as, "like I just passed out and fell asleep. "There was no alleviating factors. Symptoms are aggravated with the changing a light bulb in a hot attic. Patient reports associated loss of consciousness. Today in the emergency department patient arrived with a blood pressure of 82/51 that responded well to 2 L of 0.9% NS. Additionally heart rate was 117, respirations 25 together with WBCs of 19.2 lactic acid 3.3 patient met clinical sepsis criteria. Patient has a left shift neutrophils 81.9%, BUN 43, creatinine 4.1, lactic acid 3.3, CK 2499, troponin elevated at 107.5, chest x-ray is unremarkable 05/08/25 patient was seen earlier. Patient is lying in bed patient denied dizziness body aches body cramps. Pressure is much better and controlled. Patient continues with elevated CK continues with IV fluids for hydration. Patient denies chest pain events overnight. 05/09/25 patient is lying in bed patient denied chest pain or shortness for breath we continue with IV fluids CK is trending down. Waiting for final cultures reports ID is following. Afebrile primary nurse reports no events overnight. REVIEW OF SYSTEMS CONSTITUTIONAL: Denies fevers, chills, or night sweats. No unintentional weight loss reported. NEUROLOGICAL: Denies headache, amaurosis fugax, motor weakness, sensory deficit, vertigo/spinning sensation, gait abnormalities, or tremors. ENT: No hearing loss, otalgia, otorrhea, rhinitis, rhinorrhea, hoarseness, or sore throat. CARDIOVASCULAR: Denies any exertional angina, dyspnea on exertion, orthopnea, paroxysmal nocturnal dyspnea, palpitations, life-threatening arrhythmias, claudication. PULMONARY: Denies any shortness of breath, cough, phlegm/sputum, hemoptysis, pleuritic chest pain. SLEEP: Denies morning headaches, daytime somnolence or napping. Denies difficulty falling asleep, staying asleep, waking from sleep. Denies knowledge of snoring. GASTROINTESTINAL: Denies any type of dysphagia to either liquids or solids. Denies nausea, vomiting, pyrosis, early satiety, abdominal pain, diarrhea, constipation, or changes in stool consistency or caliber. Denies coffee-ground emesis, hematemesis, hematochezia, or melanotic stools. GENITOURINARY: Denies frequency, urgency, nocturia, hematuria or incontinence (Storage/Irritative symptoms.) Low urinary stream, straining to void, urinary intermittency or hesitancy, splitting of the voiding stream, terminal dribbling. ENDOCRINOLOGIC: Denies polyuria, polydipsia, polyphagia or heat/cold intolerances. HEMATOLOGIC: Denies thrombophilia/previous clots, or coagulopathy/bleeding disorders. ONCOLOGIC: Denies personal history of malignancy. DERMATOLOGIC: Denies rashes or pruritus. PSYCHIATRIC: Denies any suicidal or homicidal ideation. Denies hallucinations. PHYSICAL EXAM GENERAL APPEARANCE: The patient is awake, alert, and oriented, in no acute cardiopulmonary distress. NEUROLOGICAL: Cranial nerves II-XII grossly intact. Motor is 5/5 in bilateral upper and lower extremities proximal to distal. No sensory deficits. HEENT: Face is symmetric. Pupils are equal and reactive. Extraocular movements are intact. NECK: Supple. No JVD. No thyromegaly. No submental, submandibular, pre- /postauricular, occipital or supraclavicular lymphadenopathy. CHEST: Normal chest expansion. No Telemetry. LUNGS: Absence of any rales, rhonchi or any wheezing. CARDIOVASCULAR: Regular. S1 and S2 normal. No appreciable rubs, murmurs or gallops. ABDOMEN: Soft, nontender, and nondistended. There is no rebound, voluntary guarding, or rigidity. : Deferred. No Grimes. EXTREMITIES: Non-edematous and not cyanotic. No clubbing. Good capillary refill. SKIN: No skin breakdown. Vital Signs (last 8hr) Date Time Temp Pulse Resp B/P (MAP) Pulse Ox O2 Delivery O2 Flow Rate FiO2 05/09/25 08:00 98.2 71 17 141/80 96 Room Air 21 05/09/25 04:00 98.1 71 18 136/70 97 Room Air LABS: Laboratory: Test 05/09/25 04:57 05/08/25 06:31 05/07/25 16:22 Range/Units White Blood Count 10.5 4.8-10.8 K/uL Red Blood Count 4.29 L 4.50-6.20 MIL/uL Hemoglobin 13.0 L 14.0-18.0 g/dL Hematocrit 40.8 L 42-54 % Mean Corpuscular Volume 95.1 79-99 fL Mean Corpuscular Hemoglobin 30.3 27.0-33.0 pg Mean Corpuscular Hemoglobin Concent 31.9 L 32.0-36.0 g/dL Red Cell Distribution Width 13.9 11.0-15.5 % Platelet Count 159 130-400 K/uL Mean Platelet Volume 11.4 H 7.5-10.5 fL Immature Granulocyte % (Auto) 0.5 0-1 % Neutrophils (%) (Auto) 60.2 40.0-77.0 % Lymphocytes (%) (Auto) 27.4 21.0-51.0 % Monocytes (%) (Auto) 9.0 3.0-13.0 % Eosinophils (%) (Auto) 2.2 0.0-8.0 % Basophils (%) (Auto) 0.7 0.0-5.0 % Neutrophils # (Auto) 6.3 1.8-7.7 K/uL Lymphocytes # (Auto) 2.9 1.0-4.8 K/uL Monocytes # (Auto) 1.0 0.1-1.0 K/uL Eosinophils # (Auto) 0.23 0.00-0.70 K/uL Basophils # (Auto) 0.07 0.00-0.20 K/uL Absolute Immature Granulocyte (auto 0.05 0-1 K/uL Nucleated Red Blood Cells 0.0 0.0-0.19 % Sodium Level 143 136-145 mmol/L Potassium Level 4.4 3.5-5.1 mmol/L Chloride Level 111 101-111 mmol/L Carbon Dioxide Level 27 21-32 mmol/L Blood Urea Nitrogen 25 H 7-18 mg/dL Creatinine 1.7 H 0.5-1.3 mg/dL Glomerular Filtration Rate Calc 42 >90 mL/min Random Glucose 93 70-105 mg/dL Total Calcium 8.5 8.5-10.1 mg/dL Phosphorus Level 3.5 2.5-4.9 mg/dL Magnesium Level 2.20 1.80-2.40 mg/dL Total Bilirubin 0.4 0.2-1.0 mg/dL Aspartate Amino Transf (AST/SGOT) 44 H 10-37 U/L Alanine Aminotransferase (ALT/SGPT) 53 12-78 U/L Alkaline Phosphatase 47 L 50-136 U/L Total Creatine Kinase 910 #*H 21-232 U/L C-Reactive Protein, Quantitative 17.10 H 0.5-3.0 mg/L Total Protein 5.9 L 6.0-8.3 g/dL Albumin 2.9 L 3.5-5.0 g/dL Procalcitonin 0.72 H 0.05-0.5 ng/mL Uric Acid 6.3 2.6-7.2 mg/dL Thyroid Stimulating Hormone (TSH) 1.83 0.36-3.74 uIU/mL Troponin I High Sensitivity 77 *H 4-75 ng/L Current Medications Medications (Trade) Dose Ordered Sig/Dale Route PRN Reason Start Time Stop Time Status Last Admin Dose Admin Acetaminophen (TYLenol 325MG TAB) 650 mg Q6H PRN PO TEMPERATURE GREATER THAN 101.5 05/07/25 01:30 06/06/25 01:29 Amlodipine Besylate (NorvASC 5MG TAB) 5 mg DAILY PO 05/09/25 09:00 06/08/25 08:59 05/09/25 09:01 5 MG Aspirin (Aspirin 81mg Ec Tab) 81 mg DAILY PO 05/07/25 09:00 06/06/25 08:59 05/09/25 09:02 81 MG Atorvastatin Calcium (LIPItor 40MG) 40 mg HS PO 05/07/25 21:00 06/06/25 20:59 05/08/25 20:37 40 MG EZETIMIBE (Zetia) 10 mg DAILY PO 05/09/25 09:00 06/08/25 08:59 05/09/25 09:02 10 MG Fish Oil (Fish Oil 1000 Mg/Cap) 2,000 mg BID PO 05/08/25 21:00 06/07/25 20:59 05/09/25 09:01 2,000 MG Heparin Sodium (Porcine) (HEParin 5,000 UNIT VIAL) 5,000 unit BID SQ 05/07/25 09:00 06/06/25 08:59 05/09/25 09:10 5,000 UNIT Home Med (Home Medication) (Dutasteride 1 CAP) DAILY PO 05/09/25 09:00 06/08/25 08:59 Hydralazine HCl (APRESOLine 20MG INJ) 10 mg Q6H PRN IV For:SBP above 160;DBP above 90 05/07/25 01:30 06/06/25 01:29 Hydromorphone HCl (DiLAUDid 0.5MG INJ) 0.25 mg Q4H PRN IVP SEVERE PAIN (7-10) 05/07/25 01:30 05/12/25 01:29 Labetalol HCl (TRANdate 100 MG TABLET) 100 mg BID PO 05/08/25 21:00 06/07/25 20:59 05/09/25 09:01 100 MG Lactated Ringer's 1,000 ml @ 100 mls/hr Q10H IV 05/07/25 01:30 05/07/25 23:28 DC 05/07/25 13:25 100 MLS/HR Lactulose (Constulose 20gm/ 30ml Udcup) 20 gm BID PRN PO CONSTIPATION 05/07/25 01:30 06/06/25 01:29 Losartan Potassium (CozAAR 100MG TAB) 100 mg DAILY PO 05/09/25 09:00 06/08/25 08:59 05/09/25 09:01 100 MG Miscellaneous Medication (Pravastatin Sodium ) 80 mg DAILY PO 05/09/25 09:00 05/08/25 09:45 DC Montelukast Sodium (SinguLAIR) 10 mg DAILY PO 05/09/25 09:00 06/08/25 08:59 05/09/25 09:01 10 MG Nitroglycerin (Nitrostat) 0.4 mg PROTOCOL PRN SL CHEST PAIN 05/07/25 01:30 06/06/25 01:29 Ondansetron HCl (zoFRAN 4MG INJ) 4 mg Q6H PRN IV NAUSEA/VOMITING 05/07/25 01:30 06/06/25 01:29 Pantoprazole Sodium (PROTonix 40MG TAB) 40 mg DAILY PO 05/07/25 09:00 06/06/25 08:59 05/09/25 09:02 40 MG Piperacillin Sod/ Tazobactam Sod (Zosyn 3.375gm+NS 50ml) 3.375 gm Q12H IV 05/07/25 03:00 05/17/25 02:59 05/09/25 02:57 3.375 GM Sodium Bicarbonate (Sodium Bicarbonate) 1,300 mg BID PO 05/07/25 11:30 06/06/25 11:29 05/09/25 09:02 1,300 MG Sodium Chloride 1,000 ml @ 75 mls/hr [id number] IV 05/07/25 12:30 06/06/25 12:29 05/09/25 09:03 75 MLS/HR Spironolactone (Aldactone 25mg) 25 mg DAILY PO 05/09/25 09:00 06/08/25 08:59 05/09/25 09:01 25 MG Thiamine HCl (Vitamin B-1) 100 mg DAILY IVP 05/08/25 09:00 06/07/25 08:59 05/09/25 09:02 100 MG Vitamin B Complex/ Vit C/Folic Acid (Nephrovite Tablet) 1 cap DAILY PO 05/08/25 09:00 06/07/25 08:59 05/09/25 09:02 1 CAP DIAGNOSTICS / RADIOLOGY: [ ] ASSESSMENT: autonomic imbalance POA gram positive bacteremia POA Hypotension, POA resolved Syncope episode, POA Sepsis, POA Leukocytosis, POA Hyperlactatemia, POA Elevated troponin, POA Rhabdomyolysis, POA TRACEY on CKD, POA, improving Hypertension BPH Hyperlipidemia Severe protein calorie malnutrition POA PLAN: [ ] This is a 74-year-old male that presents in ED with episode of feeling faint workup of ER was consistent with sepsis. WBCs are trending down troponins are trending down. CK elevated however is also trending down. BUN and creatinine also trending down 37 BUN and creatinine 2.0 bicarb was given yesterday. Waiting for blood cultures. Admit patient to medical floor with telemetry Hypotension: Resolved Syncope episode: Check orthostatic vital signs were negative Fall precautions Sepsis, leukocytosis, hyperlactatemia: ID on board blood cultures growing positive cocci repeat 2nd set of blood cultures.so far negative Continues on Zosyn IV we will wait for ID recommendations. We will deescalate once final report from cultures. Elevated troponin: Continue aspirin no chest pain on admission or overnight. Nitroglycerin sublingual 0.4 mg as needed for chest pain every 5 minutes, max 3 doses, hold for systolic blood pressure less than 100 mmHg. Supplemental oxygen to maintain O2 saturation greater than 92% Rhabdomyolysis: Improving Continue IV fluids LR at 75 mL/hour Repeat CK in a.m. TRACEY on CKD: Metabolic acidosis Continues on bicarb p.o. Quality Control Projectionist's following. Avoid nephrotoxic agents when possible Renally dose all medications when possible Hypertension, BPH, hyperlipidemia: Resume home medication blood pressure medication Flomax. At time of admission home medications has been reconciled. Atorvastatin 40 mg by mouth once daily. GI prophylaxis, Protonix DVT prophylaxis, heparin ATTESTATION BY PHYSICIAN I have seen and examined the patient. I reviewed the documentation, medical decision making, and treatment plan as noted by the mid-level provider above. I agree with the findings and plan of care. JANIYA MANCUSO MD, ELIZABETH NP May 09, 2025 10:09
--- NOTE | 2025-05-09 12:31 | PN ---
INFECTIOUS DISEASE PROGRESS NOTE Date of Service: May 09, 2025 SUBJECTIVE: This is a 74-year-old male patient who was admitted to the hospital for evaluation after experiencing a syncopal episode. Patient is awake, alert and oriented x3. The preliminary blood cultures results is growing Gram-positive cocci in cluster. We will continue Zosyn and follow up on the final results. For now we will repeat blood cultures. PHYSICAL EXAM EYES: Anicteric. 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 HENT: No oral thrush seen, moist Oral mucosa. NECK: Supple, no JVD or thyromegaly. LUNGS: Good air entry. No rales, no rhonchi. CARDIOVASCULAR: S1, S2 regular. No murmur heard. ABDOMEN: Soft, non tender, bowel sounds present, no organomegaly. CENTRAL NERVOUS SYSTEM: Awake, alert, oriented x 3. SKIN: No rashes, no swelling. LYMPHATICS: No peripheral lymphadenopathy. MUSCULOSKELETAL: No joint swelling, erythema or tenderness. EXTREMITIES: No cyanosis or clubbing. BACK: No deformity, no pressure ulcer. GENITOURINARY: No dysuria or hematuria. Vital Sign (Last 12 Hours) 05/09/25 05/09/25 05/09/25 04:00 08:00 11:57 Temp 98.1 98.2 97.9 Pulse 71 71 69 Resp 18 17 20 B/P (MAP) 136/70 141/80 121/66 Pulse Ox 97 96 96 O2 Delivery Room Air Room Air Room Air FiO2 21 21 Intake & Output (last 24hrs) 05/08/25 05/08/25 05/09/25 15:00 23:00 07:00 Intake Total 500 ml 2156.0 ml 50.0 ml Output Total 450 ml 400 ml Balance 50 ml 1756.0 ml 50.0 ml LABS: Laboratory: Test 05/09/25 04:57 05/08/25 06:31 05/07/25 16:22 Range/Units White Blood Count 10.5 4.8-10.8 K/uL Red Blood Count 4.29 L 4.50-6.20 MIL/uL Hemoglobin 13.0 L 14.0-18.0 g/dL Hematocrit 40.8 L 42-54 % Mean Corpuscular Volume 95.1 79-99 fL Mean Corpuscular Hemoglobin 30.3 27.0-33.0 pg Mean Corpuscular Hemoglobin Concent 31.9 L 32.0-36.0 g/dL Red Cell Distribution Width 13.9 11.0-15.5 % Platelet Count 159 130-400 K/uL Mean Platelet Volume 11.4 H 7.5-10.5 fL Immature Granulocyte % (Auto) 0.5 0-1 % Neutrophils (%) (Auto) 60.2 40.0-77.0 % Lymphocytes (%) (Auto) 27.4 21.0-51.0 % Monocytes (%) (Auto) 9.0 3.0-13.0 % Eosinophils (%) (Auto) 2.2 0.0-8.0 % Basophils (%) (Auto) 0.7 0.0-5.0 % Neutrophils # (Auto) 6.3 1.8-7.7 K/uL Lymphocytes # (Auto) 2.9 1.0-4.8 K/uL Monocytes # (Auto) 1.0 0.1-1.0 K/uL Eosinophils # (Auto) 0.23 0.00-0.70 K/uL Basophils # (Auto) 0.07 0.00-0.20 K/uL Absolute Immature Granulocyte (auto 0.05 0-1 K/uL Nucleated Red Blood Cells 0.0 0.0-0.19 % Sodium Level 143 136-145 mmol/L Potassium Level 4.4 3.5-5.1 mmol/L Chloride Level 111 101-111 mmol/L Carbon Dioxide Level 27 21-32 mmol/L Blood Urea Nitrogen 25 H 7-18 mg/dL Creatinine 1.7 H 0.5-1.3 mg/dL Glomerular Filtration Rate Calc 42 >90 mL/min Random Glucose 93 70-105 mg/dL Total Calcium 8.5 8.5-10.1 mg/dL Phosphorus Level 3.5 2.5-4.9 mg/dL Magnesium Level 2.20 1.80-2.40 mg/dL Total Bilirubin 0.4 0.2-1.0 mg/dL Aspartate Amino Transf (AST/SGOT) 44 H 10-37 U/L Alanine Aminotransferase (ALT/SGPT) 53 12-78 U/L Alkaline Phosphatase 47 L 50-136 U/L Total Creatine Kinase 910 #*H 21-232 U/L C-Reactive Protein, Quantitative 17.10 H 0.5-3.0 mg/L Total Protein 5.9 L 6.0-8.3 g/dL Albumin 2.9 L 3.5-5.0 g/dL Procalcitonin 0.72 H 0.05-0.5 ng/mL Uric Acid 6.3 2.6-7.2 mg/dL Thyroid Stimulating Hormone (TSH) 1.83 0.36-3.74 uIU/mL Troponin I High Sensitivity 77 *H 4-75 ng/L DIAGNOSTICS / RADIOLOGY: PATIENT: GERALD CASE ACCT: [id number] LOC: EDHIP U: [id number] AGE/SX: 74/M ROOM: ED RE05/07/[address]: JANIYA MANCUSO MD : 1950 BED: 15 DIS: STATUS: ADM IN TLOC: SPEC: [id number] KELLY: 05/06/25 STATUS: RES REQ: [id number] RECD: 05/06/[address]: URIAH HICKMAN MD SOURCE: BLOOD ENTR: 05/06/[address] [facility] [address]: [facility]AYES [facility]: BLOOD CULTURE COMMENTS: What is the Source? BLOOD Procedure Result Gail Date-Time BLOOD CULT Preliminary 05/07/25 GRAM STAIN: 2+ GRAM POSITIVE COCCI IN PAIRS AEROBIC BOTTLE 1/2 SETS POSITIVE CALLED SIRIA/NURSE 05-07-25/1852/LVELA CULTURE REPORT: IDENTIFICATION AND SUSCEPTIBILITIES TO FOLLOW Sent to Reference Lab. SEE [id number] FOR CULTURE RESULTS ASSESSMENT: Gram-positive bacteremia. Leukocytosis, resolving. Rhabdomyolysis. Acute renal failure. Syncopal episode. PLAN: Continue Zosyn. We will follow up on the final culture results. Repeat blood cultures. Continue fall precautions. Continue GI prophylaxis. Continue IV fluids. This case was reviewed and discussed with my supervising physician Dr. Cerna and the above assessment and plan was formulated and agreed upon. ATTESTATION BY PHYSICIAN I have seen and examined the patient. I reviewed the documentation, medical decision making, and treatment plan as noted by the mid-level provider above. I agree with the findings and plan of care. DWIGHT CERNA MD, MIRTA L [facility] May 09, 2025 12:31
[2025-05-10 00:57] VITALS: BP_SYST 143; BP_SYST 149; BP_DIAS 80; BP_DIAS 87; BP_DIAS 90; PULSE 72; RESP 19
[2025-05-10 04:43] VITALS: BP 141/76; PULSE 79; RESP 18; TEMP 98.6
[2025-05-10 05:42] LABS: IMMATURE GRANULOCYTE ABSOLUTE 0.05 K/uL (0-1); NUCLEATED RED BLOOD CELLS 0.0 % (0.0-0.19); PLATELET COUNT (AUTO) 162 K/uL (130-400); RED BLOOD CELL COUNT(AUTO) 4.14 MIL/uL (4.50-6.20); RED CELL DISTRIBUTION WIDTH 13.8 % (11.0-15.5); WHITE BLOOD COUNT (AUTO) 8.5 K/uL (4.8-10.8)
[2025-05-10 06:04] LABS: ASPARTATE AMINOTRANSFERASE 34.0 U/L (10-37); CREATINE KINASE, TOTAL 381.0 U/L (21-232); CREATININE 1.5 mg/dL (0.5-1.3); GLOMERULAR FILTR. RATE CALC 49.0 mL/min (>90); GLUCOSE,RANDOM 83.0 mg/dL (70-105); PHOSPHORUS 3.3 mg/dL (2.5-4.9); SODIUM SERUM 143.0 mmol/L (136-145); TOTAL PROTEIN, SERUM 5.9 g/dL (6.0-8.3); UREA NITROGEN, BLOOD 15.0 mg/dL (7-18)
[2025-05-10 07:30] VITALS: O2SAT 95
[2025-05-10 07:58] VITALS: BP 130/72; PULSE 72; RESP 18; TEMP 98.6
[2025-05-10 12:00] VITALS: BP_SYST 132; BP_SYST 133; BP_SYST 137; BP_DIAS 76; BP_DIAS 77; BP_DIAS 79; PULSE 67; RESP 19; TEMP 98.3
--- NOTE | 2025-05-10 12:39 | PN ---
[facility] PROGRESS NOTE Date of Service: May 10, 2025 Time of Service: 12:10 SUBJECTIVE: [ ] Patient came to the emergency department with a chief complaint of syncope. Onset was 05/06/2025. Location is head. Duration is on and off. Patient reports one episode. Character is described as, "like I just passed out and fell asleep. "There was no alleviating factors. Symptoms are aggravated with the changing a light bulb in a hot attic. Patient reports associated loss of consciousness. Today in the emergency department patient arrived with a blood pressure of 82/51 that responded well to 2 L of 0.9% NS. Additionally heart rate was 117, respirations 25 together with WBCs of 19.2 lactic acid 3.3 patient met clinical sepsis criteria. Patient has a left shift neutrophils 81.9%, BUN 43, creatinine 4.1, lactic acid 3.3, CK 2499, troponin elevated at 107.5, chest x-ray is unremarkable 05/08/25 patient was seen earlier. Patient is lying in bed patient denied dizziness body aches body cramps. Pressure is much better and controlled. Patient continues with elevated CK continues with IV fluids for hydration. Patient denies chest pain events overnight. 05/09/25 patient is lying in bed patient denied chest pain or shortness for breath we continue with IV fluids CK is trending down. Waiting for final cultures reports ID is following. Afebrile primary nurse reports no events overnight. 05/10/25 patient was seen earlier. As per ID snowed the waiting for repeat cultures so far are -48 hours. First set blood cultures with Aerococcus Viridans. We will wait for ID final recommendations on antibiotics rhabdomyolysis resolved CK improved with IV fluids we will Hep-Lock fluids now. Denied chest pain or shortness for breath. REVIEW OF SYSTEMS CONSTITUTIONAL: Denies fevers, chills, or night sweats. No unintentional weight loss reported. NEUROLOGICAL: Denies headache, amaurosis fugax, motor weakness, sensory deficit, vertigo/spinning sensation, gait abnormalities, or tremors. ENT: No hearing loss, otalgia, otorrhea, rhinitis, rhinorrhea, hoarseness, or sore throat. CARDIOVASCULAR: Denies any exertional angina, dyspnea on exertion, orthopnea, paroxysmal nocturnal dyspnea, palpitations, life-threatening arrhythmias, claudication. PULMONARY: Denies any shortness of breath, cough, phlegm/sputum, hemoptysis, pleuritic chest pain. SLEEP: Denies morning headaches, daytime somnolence or napping. Denies difficulty falling asleep, staying asleep, waking from sleep. Denies knowledge of snoring. GASTROINTESTINAL: Denies any type of dysphagia to either liquids or solids. Denies nausea, vomiting, pyrosis, early satiety, abdominal pain, diarrhea, constipation, or changes in stool consistency or caliber. Denies coffee-ground emesis, hematemesis, hematochezia, or melanotic stools. GENITOURINARY: Denies frequency, urgency, nocturia, hematuria or incontinence (Storage/Irritative symptoms.) Low urinary stream, straining to void, urinary intermittency or hesitancy, splitting of the voiding stream, terminal dribbling. ENDOCRINOLOGIC: Denies polyuria, polydipsia, polyphagia or heat/cold intolerances. HEMATOLOGIC: Denies thrombophilia/previous clots, or coagulopathy/bleeding disorders. ONCOLOGIC: Denies personal history of malignancy. DERMATOLOGIC: Denies rashes or pruritus. PSYCHIATRIC: Denies any suicidal or homicidal ideation. Denies hallucinations. PHYSICAL EXAM GENERAL APPEARANCE: The patient is awake, alert, and oriented, in no acute cardiopulmonary distress. NEUROLOGICAL: Cranial nerves II-XII grossly intact. Motor is 5/5 in bilateral upper and lower extremities proximal to distal. No sensory deficits. HEENT: Face is symmetric. Pupils are equal and reactive. Extraocular movements are intact. NECK: Supple. No JVD. No thyromegaly. No submental, submandibular, pre-/ postauricular, occipital or supraclavicular lymphadenopathy. CHEST: Normal chest expansion. No Telemetry. LUNGS: Absence of any rales, rhonchi or any wheezing. CARDIOVASCULAR: Regular. S1 and S2 normal. No appreciable rubs, murmurs or gallops. ABDOMEN: Soft, nontender, and nondistended. There is no rebound, voluntary guarding, or rigidity. : Deferred. No Grimes. EXTREMITIES: Non-edematous and not cyanotic. No clubbing. Good capillary refill. SKIN: No skin breakdown. Vital Signs (last 8hr) Date Time Temp Pulse Resp B/P (MAP) Pulse Ox O2 Delivery O2 Flow Rate FiO2 05/10/25 07:58 98.6 72 18 130/72 95 Room Air 05/10/25 04:43 98.6 79 18 141/76 94 Room Air LABS: Laboratory: Test 05/10/25 05:29 05/09/25 04:57 Range/Units White Blood Count 8.5 4.8-10.8 K/uL Red Blood Count 4.14 L 4.50-6.20 MIL/uL Hemoglobin 12.7 L 14.0-18.0 g/dL Hematocrit 39.0 L 42-54 % Mean Corpuscular Volume 94.2 79-99 fL Mean Corpuscular Hemoglobin 30.7 27.0-33.0 pg Mean Corpuscular Hemoglobin Concent 32.6 32.0-36.0 g/dL Red Cell Distribution Width 13.8 11.0-15.5 % Platelet Count 162 130-400 K/uL Mean Platelet Volume 11.6 H 7.5-10.5 fL Immature Granulocyte % (Auto) 0.6 0-1 % Neutrophils (%) (Auto) 55.6 40.0-77.0 % Lymphocytes (%) (Auto) 32.0 21.0-51.0 % Monocytes (%) (Auto) 8.5 3.0-13.0 % Eosinophils (%) (Auto) 2.7 0.0-8.0 % Basophils (%) (Auto) 0.6 0.0-5.0 % Neutrophils # (Auto) 4.7 1.8-7.7 K/uL Lymphocytes # (Auto) 2.7 1.0-4.8 K/uL Monocytes # (Auto) 0.7 0.1-1.0 K/uL Eosinophils # (Auto) 0.23 0.00-0.70 K/uL Basophils # (Auto) 0.05 0.00-0.20 K/uL Absolute Immature Granulocyte (auto 0.05 0-1 K/uL Nucleated Red Blood Cells 0.0 0.0-0.19 % Sodium Level 143 136-145 mmol/L Potassium Level 4.2 3.5-5.1 mmol/L Chloride Level 112 H 101-111 mmol/L Carbon Dioxide Level 28 21-32 mmol/L Blood Urea Nitrogen 15 7-18 mg/dL Creatinine 1.5 H 0.5-1.3 mg/dL Glomerular Filtration Rate Calc 49 >90 mL/min Random Glucose 83 70-105 mg/dL Total Calcium 8.3 L 8.5-10.1 mg/dL Phosphorus Level 3.3 2.5-4.9 mg/dL Magnesium Level 2.00 1.80-2.40 mg/dL Total Bilirubin 0.5 0.2-1.0 mg/dL Aspartate Amino Transf (AST/SGOT) 34 10-37 U/L Alanine Aminotransferase (ALT/SGPT) 47 12-78 U/L Alkaline Phosphatase 53 50-136 U/L Total Creatine Kinase 381 #H 21-232 U/L Total Protein 5.9 L 6.0-8.3 g/dL Albumin 2.6 L 3.5-5.0 g/dL C-Reactive Protein, Quantitative 17.10 H 0.5-3.0 mg/L Procalcitonin 0.72 H 0.05-0.5 ng/mL Current Medications Medications (Trade) Dose Ordered Sig/Dale Route PRN Reason Start Time Stop Time Status Last Admin Dose Admin Acetaminophen (TYLenol 325MG TAB) 650 mg Q6H PRN PO TEMPERATURE GREATER THAN 101.5 05/07/25 01:30 06/06/25 01:29 Amlodipine Besylate (NorvASC 5MG TAB) 5 mg DAILY PO 05/09/25 09:00 06/08/25 08:59 05/10/25 09:28 5 MG Aspirin (Aspirin 81mg Ec Tab) 81 mg DAILY PO 05/07/25 09:00 06/06/25 08:59 05/10/25 09:29 81 MG Atorvastatin Calcium (LIPItor 40MG) 40 mg HS PO 05/07/25 21:00 06/06/25 20:59 05/09/25 22:31 40 MG EZETIMIBE (Zetia) 10 mg DAILY PO 05/09/25 09:00 06/08/25 08:59 05/10/25 09:29 10 MG Fish Oil (Fish Oil 1000 Mg/Cap) 2,000 mg BID PO 05/08/25 21:00 06/07/25 20:59 05/10/25 09:29 2,000 MG Heparin Sodium (Porcine) (HEParin 5,000 UNIT VIAL) 5,000 unit BID SQ 05/07/25 09:00 06/06/25 08:59 05/10/25 09:37 5,000 UNIT Home Med (Home Medication) (Dutasteride 1 CAP) DAILY PO 05/09/25 09:00 06/08/25 08:59 05/10/25 08:54 1 EACH Hydralazine HCl (APRESOLine 20MG INJ) 10 mg Q6H PRN IV For:SBP above 160;DBP above 90 05/07/25 01:30 06/06/25 01:29 Hydromorphone HCl (DiLAUDid 0.5MG INJ) 0.25 mg Q4H PRN IVP SEVERE PAIN (7-10) 05/07/25 01:30 05/12/25 01:29 Labetalol HCl (TRANdate 100 MG TABLET) 100 mg BID PO 05/08/25 21:00 06/07/25 20:59 05/10/25 09:29 100 MG Lactated Ringer's 1,000 ml @ 100 mls/hr Q10H IV 05/07/25 01:30 05/07/25 23:28 DC 05/07/25 13:25 100 MLS/HR Lactulose (Constulose 20gm/ 30ml Udcup) 20 gm BID PRN PO CONSTIPATION 05/07/25 01:30 06/06/25 01:29 Losartan Potassium (CozAAR 100MG TAB) 100 mg DAILY PO 05/09/25 09:00 06/08/25 08:59 05/10/25 09:28 100 MG Miscellaneous Medication (Pravastatin Sodium ) 80 mg DAILY PO 05/09/25 09:00 05/08/25 09:45 DC Montelukast Sodium (SinguLAIR) 10 mg DAILY PO 05/09/25 09:00 06/08/25 08:59 05/10/25 09:29 10 MG Nitroglycerin (Nitrostat) 0.4 mg PROTOCOL PRN SL CHEST PAIN 05/07/25 01:30 06/06/25 01:29 Ondansetron HCl (zoFRAN 4MG INJ) 4 mg Q6H PRN IV NAUSEA/VOMITING 05/07/25 01:30 06/06/25 01:29 Pantoprazole Sodium (PROTonix 40MG TAB) 40 mg DAILY PO 05/07/25 09:00 06/06/25 08:59 05/10/25 09:28 40 MG Piperacillin Sod/ Tazobactam Sod (Zosyn 3.375gm+NS 50ml) 3.375 gm Q12H IV 05/07/25 03:00 05/17/25 02:59 05/10/25 03:02 3.375 GM Sodium Bicarbonate (Sodium Bicarbonate) 1,300 mg BID PO 05/07/25 11:30 06/06/25 11:29 05/10/25 09:29 1,300 MG Sodium Chloride 1,000 ml @ 75 mls/hr [id number] IV 05/07/25 12:30 06/06/25 12:29 05/10/25 08:52 75 MLS/HR Spironolactone (Aldactone 25mg) 25 mg DAILY PO 05/09/25 09:00 06/08/25 08:59 05/10/25 09:28 25 MG Tamsulosin HCl (FloMAX) 0.4 mg DAILY PO 05/10/25 09:00 06/09/25 08:59 05/10/25 09:28 0.4 MG Thiamine HCl (Vitamin B-1) 100 mg DAILY IVP 05/08/25 09:00 06/07/25 08:59 05/10/25 09:29 100 MG Vitamin B Complex/ Vit C/Folic Acid (Nephrovite Tablet) 1 cap DAILY PO 05/08/25 09:00 06/07/25 08:59 05/10/25 09:28 1 CAP DIAGNOSTICS / RADIOLOGY: [ ] ASSESSMENT: autonomic imbalance POA improved gram positive bacteremia POA Hypotension, POA resolved Syncope episode, POA Sepsis, POA Leukocytosis, POA improved Hyperlactatemia, POA Elevated troponin, POA type 2 FL in setting of sepsis Rhabdomyolysis, POA resolved TRACEY on CKD, POA, improving Hypertension BPH Hyperlipidemia Severe protein calorie malnutrition POA PLAN: Patient continue with IV antibiotics as directed by ID waiting for repeat culture so far-48 hours. Rhabdomyolysis resolved we will Hep-Lock fluids. Admit patient to medical floor with telemetry Hypotension: Resolved Syncope episode: Check orthostatic vital signs were negative Fall precautions Sepsis, leukocytosis, hyperlactatemia: ID on board blood cultures growing positive cocci repeat 2nd set of blood cultures.so far negative Continues on Zosyn IV we will wait for ID recommendations. We will deescalate once final report from cultures. Elevated troponin: Continue aspirin no chest pain on admission or overnight. Nitroglycerin sublingual 0.4 mg as needed for chest pain every 5 minutes, max 3 doses, hold for systolic blood pressure less than 100 mmHg. Supplemental oxygen to maintain O2 saturation greater than 92% Rhabdomyolysis: Improving Continue IV fluids LR at 75 mL/hour Repeat CK in a.m. TRACEY on CKD: Metabolic acidosis Continues on bicarb p.o. 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 Avoid nephrotoxic agents when possible Renally dose all medications when possible Hypertension, BPH, hyperlipidemia: Resume home medication blood pressure medication Flomax. At time of admission home medications has been reconciled. Atorvastatin 40 mg by mouth once daily. GI prophylaxis, Protonix DVT prophylaxis, heparin ATTESTATION BY PHYSICIAN I have seen and examined the patient. I reviewed the documentation, medical decision making, and treatment plan as noted by the mid-level provider above. I agree with the findings and plan of care. JANIYA MANCUSO MD, [facility] NP May 10, 2025 12:39
--- NOTE | 2025-05-10 12:57 | PN ---
NEPHROLOGY PROGRESS NOTE Date/Time Patient Seen: May 10, 2025 SUBJECTIVE: This is a 74-year-old male with a past medical history of chronic kidney disease, hypertension, BPH, hyperlipidemia, right eye blindness. Presented to emergency room complaints of syncope. Patient states he was found in the hot attic. CK on admission was 2,199 U/L Imaging studies were noted Urine was positive for proteinuria. He was noted to have elevated BUN/creatinine We are consulted for renal failure and rhabdomyolysis. Renal function is improving Electrolytes are stable. Renal ultrasound was noted CK level is improving, 910 U/L today He continues on gentle IV hydration Blood cultures positive, antibiotics as per ID recommendations He was seen in the medical floor, in no acute distress No family at the bedside Prognosis remains guarded REVIEW OF SYSTEMS: GENERAL: Positive for generalized weakness NEUROLOGIC: Negative for any blurry vision, blind spots, double vision, facial asymmetry, dysphagia, dysarthria, hemiparesis, hemisensory deficits, vertigo, ataxia. HEENT: Negative for any head trauma, neck trauma, neck stiffness, photophobia, phonophobia, sinusitis, rhinitis. CARDIAC: Negative for any chest pain, dyspnea on exertion, paroxysmal nocturnal dyspnea, peripheral edema. PULMONARY: Negative for any shortness of breath, wheezing, COPD, or TB exposure. GASTROINTESTINAL: Negative for any abdominal pain, nausea, vomiting, bright red blood per rectum, melena. GENITOURINARY: Negative for any dysuria, hematuria, incontinence. INTEGUMENTARY: Negative for any rashes, cuts, insect bites. RHEUMATOLOGIC: Negative for any joint pains, photosensitive rashes, history of vasculitis or kidney problems. HEMATOLOGIC: Negative for any abnormal bruising, frequent infections or bleeding. Vital Signs (last 8hr) Date Time Temp Pulse Resp B/P (MAP) Pulse Ox O2 Delivery O2 Flow Rate FiO2 05/10/25 12:00 98.2 67 19 132/76 93 Room Air 133/77 137/79 05/10/25 12:00 98.2 67 19 132/76 93 Room Air 133/77 137/79 05/10/25 07:58 98.6 72 18 130/72 95 Room Air PHYSICAL EXAM: GENERAL: Alert and oriented x 3. No acute distress. Well-nourished. EYES: EOMI. Anicteric. HENT: Moist mucous membranes. No scleral icterus. No cervical lymphadenopathy. LUNGS: Clear to auscultation bilaterally. No accessory muscle use. CARDIOVASCULAR: Regular rate and rhythm. No murmur. No JVD. ABDOMEN: Soft, non-tender and non-distended. No palpable masses. EXTREMITIES: No edema. Non-tender SKIN: No rashes or lesions. Warm. NEUROLOGIC: No focal neurological deficits. CN II-XII grossly intact, but not individually tested. PSYCHIATRIC: Cooperative. Appropriate mood and affect. Current Medications Medications (Trade) Dose Ordered Sig/Dale Route Start Time Stop Time Status Last Admin Dose Admin Amlodipine Besylate (NorvASC 5MG TAB) 5 mg DAILY PO 05/09/25 09:00 06/08/25 08:59 Aspirin (Aspirin 81mg Ec Tab) 81 mg DAILY PO 05/07/25 09:00 06/06/25 08:59 05/08/25 08:31 81 MG Atorvastatin Calcium (LIPItor 40MG) 40 mg HS PO 05/07/25 21:00 06/06/25 20:59 05/07/25 22:08 40 MG EZETIMIBE (Zetia) 10 mg DAILY PO 05/09/25 09:00 06/08/25 08:59 Fish Oil (Fish Oil 1000 Mg/Cap) 2,000 mg BID PO 05/08/25 21:00 06/07/25 20:59 Heparin Sodium (Porcine) (HEParin 5,000 UNIT VIAL) 5,000 unit BID SQ 05/07/25 09:00 06/06/25 08:59 05/08/25 08:32 5,000 UNIT Home Med (Home Medication) (Dutasteride 1 CAP) DAILY PO 05/09/25 09:00 06/08/25 08:59 Labetalol HCl (TRANdate 100 MG TABLET) 100 mg BID PO 05/08/25 21:00 06/07/25 20:59 Lactated Ringer's 1,000 ml @ 100 mls/hr Q10H IV 05/07/25 01:30 05/07/25 23:28 DC 05/07/25 13:25 100 MLS/HR Losartan Potassium (CozAAR 100MG TAB) 100 mg DAILY PO 05/09/25 09:00 06/08/25 08:59 Miscellaneous Medication (Pravastatin Sodium ) 80 mg DAILY PO 05/09/25 09:00 05/08/25 09:45 DC Montelukast Sodium (SinguLAIR) 10 mg DAILY PO 05/09/25 09:00 06/08/25 08:59 Pantoprazole Sodium (PROTonix 40MG TAB) 40 mg DAILY PO 05/07/25 09:00 06/06/25 08:59 05/08/25 08:31 40 MG Piperacillin Sod/ Tazobactam Sod (Zosyn 3.375gm+NS 50ml) 3.375 gm Q12H IV 05/07/25 03:00 05/17/25 02:59 05/08/25 02:34 3.375 GM Sodium Bicarbonate (Sodium Bicarbonate) 1,300 mg BID PO 05/07/25 11:30 06/06/25 11:29 05/08/25 08:31 1,300 MG Sodium Chloride 1,000 ml @ 150 mls/hr Q6H40M IV 05/07/25 12:30 06/06/25 12:29 05/08/25 01:11 150 MLS/HR Spironolactone (Aldactone 25mg) 25 mg DAILY PO 05/09/25 09:00 06/08/25 08:59 Thiamine HCl (Vitamin B-1) 100 mg DAILY IVP 05/08/25 09:00 06/07/25 08:59 05/08/25 08:31 100 MG Vitamin B Complex/ Vit C/Folic Acid (Nephrovite Tablet) 1 cap DAILY PO 05/08/25 09:00 06/07/25 08:59 05/08/25 08:31 1 CAP LABORATORY: [ ] Hematology Labs: Test 05/10/25 05:29 Range/Units White Blood Count 8.5 4.8-10.8 K/uL Red Blood Count 4.14 L 4.50-6.20 MIL/uL Hemoglobin 12.7 L 14.0-18.0 g/dL Hematocrit 39.0 L 42-54 % Mean Corpuscular Volume 94.2 79-99 fL Mean Corpuscular Hemoglobin 30.7 27.0-33.0 pg Mean Corpuscular Hemoglobin Concent 32.6 32.0-36.0 g/dL Red Cell Distribution Width 13.8 11.0-15.5 % Platelet Count 162 130-400 K/uL Mean Platelet Volume 11.6 H 7.5-10.5 fL Immature Granulocyte % (Auto) 0.6 0-1 % Neutrophils (%) (Auto) 55.6 40.0-77.0 % Lymphocytes (%) (Auto) 32.0 21.0-51.0 % Monocytes (%) (Auto) 8.5 3.0-13.0 % Eosinophils (%) (Auto) 2.7 0.0-8.0 % Basophils (%) (Auto) 0.6 0.0-5.0 % Neutrophils # (Auto) 4.7 1.8-7.7 K/uL Lymphocytes # (Auto) 2.7 1.0-4.8 K/uL Monocytes # (Auto) 0.7 0.1-1.0 K/uL Eosinophils # (Auto) 0.23 0.00-0.70 K/uL Basophils # (Auto) 0.05 0.00-0.20 K/uL Absolute Immature Granulocyte (auto 0.05 0-1 K/uL Nucleated Red Blood Cells 0.0 0.0-0.19 % Chemistry Labs: Test 05/10/25 05:29 05/09/25 04:57 Range/Units Sodium Level 143 136-145 mmol/L Potassium Level 4.2 3.5-5.1 mmol/L Chloride Level 112 H 101-111 mmol/L Carbon Dioxide Level 28 21-32 mmol/L Blood Urea Nitrogen 15 7-18 mg/dL Creatinine 1.5 H 0.5-1.3 mg/dL Glomerular Filtration Rate Calc 49 >90 mL/min Random Glucose 83 70-105 mg/dL Total Calcium 8.3 L 8.5-10.1 mg/dL Phosphorus Level 3.3 2.5-4.9 mg/dL Magnesium Level 2.00 1.80-2.40 mg/dL Total Bilirubin 0.5 0.2-1.0 mg/dL Aspartate Amino Transf (AST/SGOT) 34 10-37 U/L Alanine Aminotransferase (ALT/SGPT) 47 12-78 U/L Alkaline Phosphatase 53 50-136 U/L Total Creatine Kinase 381 #H 21-232 U/L Total Protein 5.9 L 6.0-8.3 g/dL Albumin 2.6 L 3.5-5.0 g/dL C-Reactive Protein, Quantitative 17.10 H 0.5-3.0 mg/L Procalcitonin 0.72 H 0.05-0.5 ng/mL DIAGNOSTICS / RADIOLOGY: [place] [id number] [place] [id number] IMAGING REPORT Signed PATIENT: GERALD CASE MR#: [id number] : 1950 SEX: M AGE: 74 LOCATION: [facility] ORDER 134 STATUS: ADM IN REPORT#: [id number] SERVICE 1341 REASON: Decreased renal function ORDERING PHYSICIAN: BENNETT FUNES PROCEDURE: RENAL - US RENAL SONOGRAM EXAM: US Retroperitoneum Complete, Renal. CLINICAL HISTORY: Decreased renal function. TECHNIQUE: Real-time ultrasound of the retroperitoneum (complete) with image documentation. COMPARISON: None provided. FINDINGS: RIGHT KIDNEY: Measures 12.5 x 6.0 x 6.6 cm. Cortical echotexture within normal limits. Simple cyst in the cortex measuring 1.1 x 1.3 x 1.1 cm. No hydronephrosis. LEFT KIDNEY: Measures 10.0 x 5.3 x 5.8 cm. Cortical echotexture preserved. Hyperechoic lesion measuring 13 x 9 mm, likely representing an angiomyolipoma. No hydronephrosis. BLADDER: Wall thickness: 3 mm. Not fully distended at the time of scan. IMPRESSION: 1. No hydronephrosis. 2. Right renal simple cyst (1.1 cm). 3. 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 4. Urinary bladder incompletely distended, wall thickness 3 mm. /[place] DICTATED BY: RAMILA GILES MD DATE: 05/07/252320 ELECTRONICALLY SIGNED BY: RAMILA GILES MD DATE: 05/07/252320 PATIENT: GERALD CASE MR#: [id number] : 1950 SEX: M AGE: 74 LOCATION: [facility] ORDER 0135 STATUS: ADM IN REPORT#: [id number] SERVICE 0124 REASON: dizziness ORDERING PHYSICIAN: JOHN CHAMPION PROCEDURE: ECHO CMP - ECHO 2-D COMPLETE APPROVED REPORT EXAM: Two-dimensional and M-mode echocardiogram with Doppler and color Doppler. INDICATION ICD: R42 Dizziness 2D Dimensions RVDd 4.2 cm LVOT diam 2.3 (1.8-2.4cm) LVED Vol(simp.) 88.0 mL IVC diam 2.2 cm LVES Vol(simp.) 30.0 mL LVEF(%, simp.) 66 % LA ESV INDEX (BP) 25.20 mL/m2 Deformation Strain Apical 4 -20.4 % Apical 2 -19.8 % Apical 3 -18.2 % Global Strain -19.5 % M-Mode Dimensions LA (MM) 4.1 (1.6-4.0cm) Ao Root(MM) 4.2 (2.0-3.7cm) Aortic Valve AoV Vmax 1.2 m/s Ao Peak GR 6.2 mmHg LVOT Vmax 1.2 m/s AoV VTI 0.3 m Ao Mean GR 3.6 mmHg LVOT VTI 0.28 m CORTNEY (VMAX) 4.19 cm2 CORTNEY (VTI) 4.0 cm2 Mitral Valve MV E Vmax 101.5 cm/s DECEL Time 236 ms MV A Vmax 83.5 cm/s P 1/2 T 47 ms E/A ratio 1.2 MVA (PHT) 4.7 cm2 TDI E/E' Medial 12.2 E/E' Lateral 14.4 Medial E' Peak V 8.32 cm/s Lateral E' Peak V 7.04 cm/s Pulmonary Valve PV Vmax 1.2 m/s PV VTI 0.27 m PV Mean GR 3.5 mmHg PV Peak GR 6.2 mmHg Tricuspid Valve TR Vmax 2.3 m/s RAP (EST) 3 mmHg RVSP 26.2 mmHg TR Peak GR 23.2 mmHg Left Ventricle The left ventricle is normal size. There is normal LV segmental wall motion. Mild concentric left ventricular hypertrophy. Left ventricle systolic function is normal, estimated LVEF is 60 to 65%. Grade 1 diastolic dysfunction. Right Ventricle The right ventricle is normal size. The right ventricular systolic function is normal. Atria The left atrium size is normal. The right atrium size is normal. Aortic Valve Mild aortic annulus calcification is noted. Aortic valve is trileaflet. The leaflets are mildly thickened and calcified. Trace aortic regurgitation. There is no aortic valvular stenosis. Mitral Valve The mitral valve is normal in structure. Trace mitral regurgitation. There is no mitral valve stenosis. Tricuspid Valve The tricuspid valve is normal in structure. Trace tricuspid regurgitation. RVSP is 23 mmHg. Pulmonic Valve Pulmonic valve is not well visualized. Great Vessels The aortic root is normal in size. The IVC is normal in size and collapses >50% with inspiration. Pericardium There is no pericardial effusion. Other Information Quality : Technically difficult study due to body habitus Conclusion The cardiac chambers are normal in size. Mild concentric left ventricular hypertrophy. There is normal LV segmental wall motion. Left ventricle systolic function is normal, estimated LVEF is 60 to 65%. Grade 1 diastolic dysfunction. Trace aortic regurgitation. Trace mitral regurgitation. Trace tricuspid regurgitation. PASP is 26 mmHg. There is no pericardial effusion. DICTATED BY: PETER RAY MD DATE: 05/07/25654 ELECTRONICALLY SIGNED BY: PETER RAY MD DATE: 05/07/25 2392 PATIENT: GERALD CASE MR#: [id number] : 1950 SEX: M AGE: 74 LOCATION: [facility] ORDER 0135 STATUS: [facility]M [facility] REPORT#: [id number] SERVICE 0124 REASON: dizziness ORDERING PHYSICIAN: JOHN CHAMPION PROCEDURE: CAROTID - US CAROTID DUPLEX EXAMINATION: DUPLEX ULTRASOUND EXAMINATION OF THE BILATERAL CAROTID AND VERTEBRAL ARTERIES. CLINICAL HISTORY: Dizziness. COMPARISON: CT head without contrast dated 05/06/2025. TECHNIQUE: Real-time ultrasound scan of the bilateral carotid and vertebral arteries, 2-D grayscale, with color Doppler flow and spectral waveform analysis. FINDINGS: Color and spectral Doppler interrogation of the carotid vessels on the right demonstrate peak systolic velocities as follows: CCA (Proximal and distal): 124 and 121 cm/s respectively. Bulb: 96 cm/s. ECA: 176 cm/s. ICA (Proximal, mid, and distal): 78, 58, and 68 cm/s respectively. Vertebral artery demonstrates antegrade flow: 50 cm/s. Right ICA/CCA ratio: 1.0 Peak systolic velocities on the left are as follows: CCA (Proximal, mid, and distal): 78, 81, and 92 cm/s respectively. Bulb: 79 cm/s. ECA: 173 cm/s. ICA (Proximal, mid, and distal): 78, 81, and 92 cm/s respectively. Vertebral artery demonstrates antegrade flow: 00 cm/s. Left ICA/CCA ratio: 1.0 Both the common carotid arteries and their branches reveal mild intimal thickening. There are small calcified plaques in the bilateral distal common carotid arteries and carotid bulb without significant stenosis. There is a calcified plaque in the left proximal external carotid artery causing about 50% to 69% diameter stenosis. There are raised velocities in the bilateral external carotid artery. IMPRESSION: Mild intimal thickening in the bilateral carotid arteries and their branches. Calcified plaques as described. There is no significant flow limiting lesions in the remainder of the arteries. Raised velocities in the bilateral external carotid artery. /[place] DICTATED BY: ONI CLINE MD DATE: 05/08/251025 ELECTRONICALLY SIGNED BY: ONI CLINE MD DATE: 05/08/251025 PATIENT: GERALD CASE MR#: [id number] : 1950 SEX: M AGE: 74 LOCATION: [facility] ORDER 26 STATUS: REG REPORT#: [id number] SERVICE 25 REASON: syncope ORDERING PHYSICIAN: URIAH HICKMAN MD PROCEDURE: HEAD WO - CT HEAD/BRAIN W/O CONTRAST EXAM: Non-contrast CT examination of the Brain. CLINICAL HISTORY: Syncope. TECHNIQUE: Thin collimated axial CT images of the brain were obtained, with sagittal and coronal reformatted images also submitted. CT scan done according to ALARA (As Low as Reasonably Achievable). CONTRAST USED: None. COMPARISON: None provided. FINDINGS: No acute intracranial abnormality is present. No acute cortical infarction, hemorrhage, mass, or mass effect. Mild to moderate chronic ischemic changes secondary to small vessel disease. No hydrocephalus or abnormal extra-axial fluid collections. The posterior fossa is unremarkable. The skull base and calvarium are intact. Mild scutal mucosal disease in the paranasal sinuses. The mastoid air cells are clear bilaterally. Questionable calcified ectopia lentis in the right eye globe. Mild scarring around the left occipital scalp. IMPRESSION: No acute intracranial abnormality is present. Mild to moderate chronic ischemic changes secondary to small vessel disease. /[place] DICTATED BY: ISIDRA SALAZAR Jr., MD DATE: 05/07/25108 ELECTRONICALLY SIGNED BY: ISIDRA SALAZAR Jr., MD DATE: 05/07/25108 PATIENT: GERALD CASE MR#: [id number] : 1950 SEX: M AGE: 74 LOCATION: [facility] ORDER 43 STATUS: [facility] REPORT#: [id number] SERVICE 41 REASON: hypotension ORDERING PHYSICIAN: URIAH HICKMAN MD PROCEDURE: CXR1VW - CHEST 1VW EXAM: CR Chest, 2 View. CLINICAL HISTORY: hypotension COMPARISON: None provided. FINDINGS: LUNGS: The lungs show no infiltrate or other acute finding. PLEURAL SPACES: No evidence of pleural effusion or pneumothorax. MEDIASTINUM: The cardiomediastinal silhouette is within normal limits. BONES: No aggressive appearing osseous lesion seen. IMPRESSION: No acute cardiopulmonary pathology is evident. /[place] DICTATED BY: ISIDRA SALAZAR Jr., MD DATE: 05/07/2522 ELECTRONICALLY SIGNED BY: ISIDRA SALAZAR Jr., MD DATE: 05/07/2522 ASSESSMENT: Acute on chronic renal failure Rhabdomyolysis Hypotension Syncope episode Sepsis Leukocytosis Hyperlactatemia Elevated troponin Hypertension BPH Hyperlipidemia PLAN: Labs, diagnostic, radiologic exams reviewed and interpreted by myself and supervising physician. We have reviewed external records in detail Discontinue IV Flomax. Please renally dose antibiotics and medications. Require close monitoring of renal function and electrolytes Order CBC, CMP, and electrolytes in am BiPAP as necessary, for respiratory distress Monitor blood pressure adjust medication doses as needed Avoid hypotensive episodes May use Dilaudid 0.5 mg IV every 6 hours as needed for severe pain Monitor blood sugars Strict intake, output, and daily weight should be monitored Please renally adjust medications Avoid nephrotoxic and nonsteroidal drugs Avoid contrast if possible Will continue to monitor renal function, anemia, electrolytes Treatment plan discussed with patient Questions were answered We have discussed with the other team physicians in detail about the care plan We will continue to monitor the patient closely ATTESTATION BY PHYSICIAN I have seen and examined the patient. I reviewed the documentation, medical dec ision making, and treatment plan as noted by the mid-level provider above. I agree with the findings and plan of care. PELON CENTENO MD, [facility] May 10, 2025 12:57
--- NOTE | 2025-05-10 13:06 | PN ---
NEPHROLOGY NOTE SUBJECTIVE: Renal failure, anemia, syncope, elevated troponin, acute renal failure, rhabdomyolysis. The patient is weak. He has received fluids. CK is still elevated. Other systemic review is unchanged. No other associated findings. No other aggravating or relieving factors. The patient is weak and the patient remains ____. Multiple other comorbidities as detailed. REVIEW OF SYSTEMS: CONSTITUTIONAL: No fevers, chills, or rigors. HEENT: No headache, oral ulcers, sore throat, or difficulty swallowing. RESPIRATORY: No cough, expectoration, hemoptysis, or pleuritic pain. CARDIOVASCULAR: Has shortness of breath. No orthopnea or PND. GASTROINTESTINAL: Negative for nausea, vomiting, or diarrhea reported. GENITOURINARY: Negative for hematuria. DERMATOLOGICAL: No rashes, pruritus or skin lesions. ENDOCRINE: No polyuria, polydipsia or polyphagia. PHYSICAL EXAMINATION: GENERAL: Shows pale, sick looking, lying in bed. VITAL SIGNS: Blood pressure is 136/70, pulse 71, respiratory rate is 18, afebrile. HEENT: Head is atraumatic, normocephalic. Pupils are round and reactive to light. Sclerae are anicteric. Conjunctivae not pale. Oral mucosa is not dry. NECK: Without masses or bruits. Thyroid is palpable. Neck has no bruits. LUNGS: Shows equal thoracic percussion note being resonant in all areas. CARDIAC: Regular rhythm. No rubs. No S3 or S4. No parasternal heave. ABDOMEN: No guarding, tenderness. Bowel sounds present. No free fluid. EXTREMITIES: No edema and no cyanosis. BACK: No tenderness or back deformities. LYMPHATIC: No lymph node swelling. NEUROLOGIC: Neurologically unchanged, nonfocal, no cranial nerve palsies. LABORATORY DATA: We have reviewed available labs in detail. Labs have shown hemoglobin is 13 and white cell count reviewed. Creatinine is still elevated at 1.7, BUN of 25. Old record reviewed. Bicarb normal. CK is still elevated. IMAGING STUDIES: Imaging studies personally reviewed and interpreted. PROBLEMS: * Acute renal failure. * Previous hypertension. * Syncope. * Rhabdomyolysis. * Anemia. * Electrolyte problem. * Other comorbidities. PLAN: * Plan is for now gentle hydration to continue. * We will follow up on blood pressure and weight. * Intake, output, weight will be monitored. * Nonsteroidal drugs will be avoided. * Dose of medicine will be adjusted. * IV Dilaudid 0.5 q. 6 hours for pain. * Labs in 6 days. * Imaging studies personally reviewed and interpreted. * Followup labs have been ordered, CBC, CMP, and CK again and we have discussed with the team physician. Old records have been reviewed. * Condition remains guarded. * The patient is seen several times today. We have discussed with the team physicians in detail on the patient's care plan. TID: [id number] RECEIPT: [id number]
--- NOTE | 2025-05-10 15:44 | PN ---
INFECTIOUS DISEASE PROGRESS NOTE Date of Service: May 10, 2025 SUBJECTIVE: This 74 year old male patient is being seen today at bedside. No fever or chills. No nausea or vomiting. Patient denied chest or shortness of breath. Denies dysuria or hematuria. In no distress at this time. Previous blood cultures grew aerococcus viridans, contaminant. Latest blood cultures preliminary have had no growth. Went over plan of care with patient, prescription given to nurse for antiviral medications for lip sores. PHYSICAL EXAM EYES: Anicteric. 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 HENT: No oral thrush seen, moist Oral mucosa. blister noted to lip NECK: Supple, no JVD or thyromegaly. LUNGS: Good air entry. No rales, no rhonchi. CARDIOVASCULAR: S1, S2 regular. No murmur heard. ABDOMEN: Soft, non tender, bowel sounds present, no organomegaly. CENTRAL NERVOUS SYSTEM: Awake, alert, oriented x 3. SKIN: No rashes, no swelling. LYMPHATICS: No peripheral lymphadenopathy. MUSCULOSKELETAL: No joint swelling, erythema or tenderness. EXTREMITIES: No cyanosis or clubbing. BACK: No deformity, no pressure ulcer. GENITOURINARY: No dysuria or hematuria. Vital Sign (Last 12 Hours) 05/10/25 05/10/25 05/10/25 05/10/25 04:43 07:58 12:00 12:00 Temp 98.6 98.6 98.2 98.2 Pulse 79 72 67 67 Resp 18 18 19 19 B/P (MAP) 141/76 130/72 132/76 132/76 133/77 133/77 137/79 137/79 Pulse Ox 94 95 93 93 O2 Delivery Room Air Room Air Room Air Room Air Intake & Output (last 24hrs) 05/09/25 05/09/25 05/10/25 15:00 23:00 07:00 Intake Total 2621.0 ml 950.0 ml Balance 2621.0 ml 950.0 ml LABS: Laboratory: Test 05/10/25 05:29 05/09/25 04:57 Range/Units White Blood Count 8.5 4.8-10.8 K/uL Red Blood Count 4.14 L 4.50-6.20 MIL/uL Hemoglobin 12.7 L 14.0-18.0 g/dL Hematocrit 39.0 L 42-54 % Mean Corpuscular Volume 94.2 79-99 fL Mean Corpuscular Hemoglobin 30.7 27.0-33.0 pg Mean Corpuscular Hemoglobin Concent 32.6 32.0-36.0 g/dL Red Cell Distribution Width 13.8 11.0-15.5 % Platelet Count 162 130-400 K/uL Mean Platelet Volume 11.6 H 7.5-10.5 fL Immature Granulocyte % (Auto) 0.6 0-1 % Neutrophils (%) (Auto) 55.6 40.0-77.0 % Lymphocytes (%) (Auto) 32.0 21.0-51.0 % Monocytes (%) (Auto) 8.5 3.0-13.0 % Eosinophils (%) (Auto) 2.7 0.0-8.0 % Basophils (%) (Auto) 0.6 0.0-5.0 % Neutrophils # (Auto) 4.7 1.8-7.7 K/uL Lymphocytes # (Auto) 2.7 1.0-4.8 K/uL Monocytes # (Auto) 0.7 0.1-1.0 K/uL Eosinophils # (Auto) 0.23 0.00-0.70 K/uL Basophils # (Auto) 0.05 0.00-0.20 K/uL Absolute Immature Granulocyte (auto 0.05 0-1 K/uL Nucleated Red Blood Cells 0.0 0.0-0.19 % Sodium Level 143 136-145 mmol/L Potassium Level 4.2 3.5-5.1 mmol/L Chloride Level 112 H 101-111 mmol/L Carbon Dioxide Level 28 21-32 mmol/L Blood Urea Nitrogen 15 7-18 mg/dL Creatinine 1.5 H 0.5-1.3 mg/dL Glomerular Filtration Rate Calc 49 >90 mL/min Random Glucose 83 70-105 mg/dL Total Calcium 8.3 L 8.5-10.1 mg/dL Phosphorus Level 3.3 2.5-4.9 mg/dL Magnesium Level 2.00 1.80-2.40 mg/dL Total Bilirubin 0.5 0.2-1.0 mg/dL Aspartate Amino Transf (AST/SGOT) 34 10-37 U/L Alanine Aminotransferase (ALT/SGPT) 47 12-78 U/L Alkaline Phosphatase 53 50-136 U/L Total Creatine Kinase 381 #H 21-232 U/L Total Protein 5.9 L 6.0-8.3 g/dL Albumin 2.6 L 3.5-5.0 g/dL C-Reactive Protein, Quantitative 17.10 H 0.5-3.0 mg/L Procalcitonin 0.72 H 0.05-0.5 ng/mL DIAGNOSTICS / RADIOLOGY: RUN DATE: 05/09/25 [facility] [address] RUN TIME: [id number] [address], [place] [address] Department of Laboratories CLIA # [id number] Personal Lines Account Executive: Renee Guerrero DO Specimen Report PATIENT: GERALD CASE ACCT: [id number] LOC: [facility] U: [id number] AGE/SX: 74/M ROOM: [facility] RE05/07/[address]: JANIYA MANCUSO MD : 1950 BED: 1 DIS: STATUS: ADM IN TLOC: SPEC: [id number] KELLY: 05/06/25 STATUS: COMP REQ: [id number] RECD: 05/07/25-[address]: URIAH HICKMAN MD SOURCE: BLOOD ENTR: 05/07/[address]: HAYES CARNEY MD [facility]: BLOOD ORDERED: AERO ID & SENS Procedure Result Gail Date-Time AEROBIC ID & SENSITIVITIES Final 05/09/25-1225 [facility] DESCRIPTION: DAY 1: GRAM POSITIVE COCCI IDENTIFICATION AND SENSITIVITY TO FOLLOW AEROBIC BOTTLE COM: NO NCCLS SUSCEPTIBILITY PROCEDURES COM: AVAILABLE FOR THIS ORGANISM AEROCOCCUS VIRIDANS Test(s) performed by: [facility] [address] [place] [address] @ [facility] Test Performed at: [facility] [address], [place], [place] Medical Forestry And Wildlife Manager: Kurt Duran D.O. ASSESSMENT: Leukocytosis, resolving. Rhabdomyolysis. Acute renal failure. Syncopal episode. sores to lip gram positive bacteremia, contaminant PLAN: d/c zosyn Continue fall precautions. Continue GI prophylaxis. Continue IV fluids. No antibiotics needed once d/c by primary team Prescription for antiviral medications given nurse. This case was reviewed and discussed with my supervising physician Dr. Mansfield and the above assessment and plan was formulated and agreed upon. [facility]ER [facility] May 10, 2025 15:44
[2025-05-10 16:00] VITALS: BP 141/75; PULSE 70; RESP 20; TEMP 98.6
--- NOTE | 2025-05-10 17:35 | NUR ---
DISCHARGE PIV DC'D PATIENT INFORMED TO FOLLOW UP WITH PRIMARY AND NEPHROLOGY. PATIENT GIVEN BACK HOME MEDICATION. ALL QUESTIONS ANSWERED PRIOR TO DISCHARGE
--- NOTE | 2025-05-11 13:13 | DS ---
Discharge Summary Hospital Course Summary: Patient came to the emergency department with a chief complaint of syncope. Onset was 05/06/2025. Location is head. Duration is on and off. Patient reports one episode. Character is described as, "like I just passed out and fell asleep. "There was no alleviating factors. Symptoms are aggravated with t he changing a light bulb in a hot attic. Patient reports associated loss of consciousness. Today in the emergency department patient arrived with a blood pressure of 82/51 that responded well to 2 L of 0.9% NS. Additionally heart rate was 117, respirations 25 together with WBCs of 19.2 lactic acid 3.3 patient met clinical sepsis criteria. Patient has a left shift neutrophils 81.9%, BUN 43, creatinine 4.1, lactic acid 3.3, CK 2499, troponin elevated at 107.5, chest x-ray is unremarkable 05/08/25 patient was seen earlier. Patient is lying in bed patient denied dizziness body aches body cramps. Pressure is much better and controlled. Patient continues with elevated CK continues with IV fluids for hydration. Patient denies chest pain events overnight. 05/09/25 patient is lying in bed patient denied chest pain or shortness for breath we continue with IV fluids CK is trending down. Waiting for final cultures reports ID is following. Afebrile primary nurse reports no events overnight. 05/10/25 patient was seen earlier. As per ID snowed the waiting for repeat cultures so far are -48 hours. First set blood cultures with Aerococcus Viridans. We will wait for ID final recommendations on antibiotics rhabdomyolysis resolved CK improved with IV fluids we will Hep-Lock fluids now. Denied chest pain or shortness for breath. Late entry: Patient was cleared by ID.Previous blood cultures grew aerococcus viridans, contaminant. Latest blood cultures preliminary have had no growth. Went over plan of care with patient, prescription given to nurse for antiviral medications for lip sores. Patient is hemodynamically stable patient denies headaches no neuro focal deficits noted. Chest pain no shortness a breath. 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 ACTIVITY: Ad kellie HOME MEDICATIONS remain the same CHANGES ON HOME MEDICATIONS none NEW MEDICATIONS antiviral medication prescription prescribed by ID as directed. TEACHING: Side effects adverse reaction of new medication was discussed, Fall precautions Emergency instructions: The patient was instructed to present to the nearest Emergency Department or call 911 should their symptoms return or worsen. Discharge Instructions: REASON: dizziness ORDERING PHYSICIAN: JOHN CHAMPION PROCEDURE: ECHO [facility] - ECHO 2-D COMPLETE APPROVED REPORT EXAM: Two-dimensional and M-mode echocardiogram with Doppler and color Doppler. INDICATION ICD: R42 Dizziness 2D Dimensions RVDd 4.2 cm LVOT diam 2.3 (1.8-2.4cm) LVED Vol(simp.) 88.0 mL IVC diam 2.2 cm LVES Vol(simp.) 30.0 mL LVEF(%, simp.) 66 % LA ESV INDEX (BP) 25.20 mL/m2 Deformation Strain Apical 4 -20.4 % Apical 2 -19.8 % Apical 3 -18.2 % Global Strain -19.5 % M-Mode Dimensions LA (MM) 4.1 (1.6-4.0cm) Ao Root(MM) 4.2 (2.0-3.7cm) Aortic Valve AoV Vmax 1.2 m/s Ao Peak GR 6.2 mmHg LVOT Vmax 1.2 m/s AoV VTI 0.3 m Ao Mean GR 3.6 mmHg LVOT VTI 0.28 m CORTNEY (VMAX) 4.19 cm2 CORTNEY (VTI) 4.0 cm2 Mitral Valve MV E Vmax 101.5 cm/s DECEL Time 236 ms MV A Vmax 83.5 cm/s P 1/2 T 47 ms E/A ratio 1.2 MVA (PHT) 4.7 cm2 TDI E/E' Medial 12.2 E/E' Lateral 14.4 Medial E' Peak V 8.32 cm/s Lateral E' Peak V 7.04 cm/s Pulmonary Valve PV Vmax 1.2 m/s PV VTI 0.27 m PV Mean GR 3.5 mmHg PV Peak GR 6.2 mmHg Tricuspid Valve TR Vmax 2.3 m/s RAP (EST) 3 mmHg RVSP 26.2 mmHg TR Peak GR 23.2 mmHg Left Ventricle The left ventricle is normal size. There is normal LV segmental wall motion. Mild concentric left ventricular hypertrophy. Left ventricle systolic function is normal, estimated LVEF is 60 to 65%. Grade 1 diastolic dysfunction. Right Ventricle The right ventricle is normal size. The right ventricular systolic function is normal. Atria The left atrium size is normal. The right atrium size is normal. Aortic Valve Mild aortic annulus calcification is noted. Aortic valve is trileaflet. The leaflets are mildly thickened and calcified. Trace aortic regurgitation. There is no aortic valvular stenosis. Mitral Valve The mitral valve is normal in structure. Trace mitral regurgitation. There is no mitral valve stenosis. Tricuspid Valve The tricuspid valve is normal in structure. Trace tricuspid regurgitation. RVSP is 23 mmHg. Pulmonic Valve Pulmonic valve is not well visualized. Great Vessels The aortic root is normal in size. The IVC is normal in size and collapses >50% with inspiration. Pericardium There is no pericardial effusion. Other Information Quality : Technically difficult study due to body habitus Conclusion The cardiac chambers are normal in size. Mild concentric left ventricular hypertrophy. There is normal LV segmental wall motion. Left ventricle systolic function is normal, estimated LVEF is 60 to 65%. Grade 1 diastolic dysfunction. Trace aortic regurgitation. Trace mitral regurgitation. Trace tricuspid regurgitation. PASP is 26 mmHg. There is no pericardial effusion. REASON: dizziness ORDERING PHYSICIAN: JOHN CHAMPION PROCEDURE: CAROTID - US CAROTID DUPLEX EXAMINATION: DUPLEX ULTRASOUND EXAMINATION OF THE BILATERAL CAROTID AND VERTEBRAL ARTERIES. CLINICAL HISTORY: Dizziness. COMPARISON: CT head without contrast dated 05/06/2025. TECHNIQUE: Real-time ultrasound scan of the bilateral carotid and vertebral arteries, 2-D grayscale, with color Doppler flow and spectral waveform analysis. FINDINGS: Color and spectral Doppler interrogation of the carotid vessels on the right demonstrate peak systolic velocities as follows: CCA (Proximal and distal): 124 and 121 cm/s respectively. Bulb: 96 cm/s. ECA: 176 cm/s. ICA (Proximal, mid, and distal): 78, 58, and 68 cm/s respectively. Vertebral artery demonstrates antegrade flow: 50 cm/s. Right ICA/CCA ratio: 1.0 Peak systolic velocities on the left are as follows: CCA (Proximal, mid, and distal): 78, 81, and 92 cm/s respectively. Bulb: 79 cm/s. ECA: 173 cm/s. ICA (Proximal, mid, and distal): 78, 81, and 92 cm/s respectively. Vertebral artery demonstrates antegrade flow: 00 cm/s. Left ICA/CCA ratio: 1.0 Both the common carotid arteries and their branches reveal mild intimal thickening. There are small calcified plaques in the bilateral distal common carotid arteries and carotid bulb without significant stenosis. There is a calcified plaque in the left proximal external carotid artery causing about 50% to 69% diameter stenosis. There are raised velocities in the bilateral external carotid artery. IMPRESSION: Mild intimal thickening in the bilateral carotid arteries and their branches. Calcified plaques as described. There is no significant flow limiting lesions in the remainder of the arteries. Raised velocities in the bilateral external carotid artery. REASON: syncope ORDERING PHYSICIAN: URIAH HICKMAN MD PROCEDURE: HEAD WO - CT HEAD/BRAIN W/O CONTRAST EXAM: Non-contrast CT examination of the Brain. CLINICAL HISTORY: Syncope. TECHNIQUE: Thin collimated axial CT images of the brain were obtained, with sagittal and coronal reformatted images also submitted. CT scan done according to ALARA (As Low as Reasonably Achievable). CONTRAST USED: None. COMPARISON: None provided. FINDINGS: No acute intracranial abnormality is present. No acute cortical infarction, hemorrhage, mass, or mass effect. Mild to moderate chronic ischemic changes secondary to small vessel disease. No hydrocephalus or abnormal extra-axial fluid collections. The posterior fossa is unremarkable. The skull base and calvarium are intact. Mild scutal mucosal disease in the paranasal sinuses. The mastoid air cells are clear bilaterally. Questionable calcified ectopia lentis in the right eye globe. Mild scarring around the left occipital scalp. IMPRESSION: No acute intracranial abnormality is present. Mild to moderate chronic ischemic changes secondary to small vessel disease. /[facility] Medications: Reported Medications Fexofenadine HCl (Marika Allergy) 180 Mg Tablet, 1 TAB PO DAILY for allergy symptoms for 30 Days, #30 TAB 0 Refills 05/07/25 [place]-3/Dha/Epa/Fish Oil (Fish Oil 1,000 mg Softgel) 1,000 Mg (120 Mg-180 Mg) Capsule, 2 CAP PO BID for 30 Days, #60 CAP 0 Refills 05/07/25 Aspirin (Aspirin) 81 Mg Tab.chew, 1 TAB PO DAILY for 30 Days, #30 TAB 0 Refills 05/07/25 Montelukast Sodium (Montelukast Sodium) 10 Mg Tablet, 1 TAB PO DAILY for 30 Days, #30 TAB 0 Refills 05/07/25 Ezetimibe (Ezetimibe) 10 Mg Tablet, 1 TAB PO DAILY for 30 Days, #30 TAB 0 Refills 05/07/25 Pravastatin Sodium (Pravastatin Sodium) 40 Mg Tablet, 80 MG PO DAILY, TAB 05/07/25 Tamsulosin HCl (Flomax) 0.4 Mg Cap.er.24h, 1 CAP PO DAILY for 30 Days, #30 CAP 0 Refills 05/07/25 Dutasteride (Dutasteride) 0.5 Mg Capsule, 1 CAP PO DAILY for 30 Days, #30 CAP 0 Refills 05/07/25 Labetalol HCl (Labetalol HCl) 100 Mg Tablet, 1 TAB PO BID for 30 Days, #60 TAB 0 Refills 05/07/25 Spironolactone (Spironolactone) 25 Mg Tablet, 1 TAB PO DAILY for 30 Days, #30 TAB 0 Refills 05/07/25 Amlodipine Besylate (Amlodipine Besylate) 5 Mg Tablet, 1 TAB PO DAILY for 30 Days, #30 TAB 0 Refills 05/07/25 Olmesartan Medoxomil (Olmesartan Medoxomil) 40 Mg Tablet, 1 TAB PO DAILY for 30 Days, #30 TAB 0 Refills 05/07/25 Discontinued Reported Medications Labetalol HCl (Labetalol HCl) 100 Mg Tablet, 1 TAB PO BID for 30 Days, #60 TAB 0 Refills 05/07/25 Montelukast Sodium (Singulair) 10 Mg Tablet, 10 MG PO HS, TAB 02/02/22 [alegra] No Conflict Check, 100 MG PO DAILY 02/02/22 Aspirin (Aspirin EC) 81 Mg Tablet.dr, 81 MG PO HS, TAB 02/02/22 Niacinamide (Niacin) 500 Mg Tablet, 2000 MG PO HS, TAB 02/02/22 Cyclosporine (Restasis) 1 Each Droperette, 1 EACH OP BID, DROP 02/02/22 Dutasteride (Dutasteride) 0.5 Mg Capsule, 0.5 MG PO DAILY, CAP 02/02/22 Tamsulosin HCl (Flomax) 0.4 Mg Cap.er.24h, 0.4 MG PO DAILY, CAPSULE.DR 02/02/22 Pravastatin Sodium (Pravastatin Sodium) 80 Mg Tablet, 80 MG PO HS, TAB 02/02/22 Metoprolol Succinate (Metoprolol Succinate) 50 Mg Tab.er.24h, 50 MG PO DAILY, TAB 02/02/22 Hydrochlorothiazide (Hydrochlorothiazide) 12.5 Mg Tablet, 12.5 MG PO DAILY, TAB 02/02/22 Amlodipine Besylate (Amlodipine Besylate) 5 Mg Tablet, 5 MG PO DAILY, TAB 02/02/22 Olmesartan Medoxomil (Olmesartan Medoxomil) 40 Mg Tablet, 40 MG PO DAILY, TAB 02/02/22 Discontinued Scripts Albuterol Sulfate (Proair Digihaler) 90 Mcg Aer.pw.bas, 90 MCG IH TID PRN for WHEEZING, #1 INHALER Prov:LUCIA SALAS [facility] 10/27/23 Guaifenesin (Guaifenesin) 400 Mg Tablet, 400 MG PO BID PRN for COUGH, #30 TAB Prov:LUCIA SALAS [facility] 10/27/23 Azithromycin (Azithromycin) 250 Mg Tablet, 250 MG PO DAILY, #6 TAB Take 2 now then 1 daily until complete Prov:LUCIA SALAS 10/27/23 Continued Medications: Amlodipine Besylate (Amlodipine Besylate) 5 Mg Tablet 1 TAB PO DAILY for 30 Days, #30 TAB 0 Refills Aspirin (Aspirin) 81 Mg Tab.chew 1 TAB PO DAILY for 30 Days, #30 TAB 0 Refills Dutasteride (Dutasteride) 0.5 Mg Capsule 1 CAP PO DAILY for 30 Days, #30 CAP 0 Refills Ezetimibe (Ezetimibe) 10 Mg Tablet 1 TAB PO DAILY for 30 Days, #30 TAB 0 Refills Fexofenadine HCl (Marika Allergy) 180 Mg Tablet 1 TAB PO DAILY for allergy symptoms for 30 Days, #30 TAB 0 Refills Labetalol HCl (Labetalol HCl) 100 Mg Tablet 1 TAB PO BID for 30 Days, #60 TAB 0 Refills Montelukast Sodium (Montelukast Sodium) 10 Mg Tablet 1 TAB PO DAILY for 30 Days, #30 TAB 0 Refills Olmesartan Medoxomil (Olmesartan Medoxomil) 40 Mg Tablet 1 TAB PO DAILY for 30 Days, #30 TAB 0 Refills [place]-3/Dha/Epa/Fish Oil (Fish Oil 1,000 mg Softgel) 1,000 Mg (120 Mg-180 Mg) Capsule 2 CAP PO BID for 30 Days, #60 CAP 0 Refills Pravastatin Sodium (Pravastatin Sodium) 40 Mg Tablet 80 MG PO DAILY, TAB Spironolactone (Spironolactone) 25 Mg Tablet 1 TAB PO DAILY for 30 Days, #30 TAB 0 Refills Tamsulosin HCl (Flomax) 0.4 Mg Cap.er.24h 1 CAP PO DAILY for 30 Days, #30 CAP 0 Refills ATTESTATION BY PHYSICIAN I have seen and examined the patient. I reviewed the documentation, medical decision making, and treatment plan as noted by the mid-level provider above. I agree with the findings and plan of care. JANIYA MANCUSO MD, ELIZABETH NP May 11, 2025 13:13
== END 2025-05-10 18:10 | disposition home or self-care (01) | DRG 871 ==
LOC: EDH 21:34 → UNDOADMIN 05-07 00:34 → EDHIP 05-07 00:34 → 3CH 05-07 00:50 → EDHIP 05-08 00:51 → 3CH 05-08 00:51 → UNDOADMIN 05-10 08:10 → UNDODISIN 05-10 18:10
PROVIDERS: ADMIT Internal Medicine; ATTEND Internal Medicine
DX: A41.9 Sepsis, unspecified organism (principal); E43 Unspecified severe protein-calorie malnutrition; I21.A1 Myocardial infarction type 2; E87.20 Acidosis, unspecified; M62.82 Rhabdomyolysis; N17.9 Acute kidney failure, unspecified; R65.20 Severe sepsis without septic shock; R55 Syncope and collapse; E86.0 Dehydration; N18.9 Chronic kidney disease, unspecified; N40.0 Benign prostatic hyperplasia without lower urinary tract symptoms; I12.9 Hypertensive chronic kidney disease with stage 1 through stage 4 chronic kidney disease, or unspecified chronic kidney disease; B96.89 Other specified bacterial agents as the cause of diseases classified elsewhere; D64.9 Anemia, unspecified; E11.22 Type 2 diabetes mellitus with diabetic chronic kidney disease; E78.00 Pure hypercholesterolemia, unspecified; I25.10 Atherosclerotic heart disease of native coronary artery without angina pectoris; Z51.5 Encounter for palliative care; Z79.82 Long term (current) use of aspirin; Z79.899 Other long term (current) drug therapy; Z68.37 Body mass index [BMI] 37.0-37.9, adult
CPT/HCPCS: 36415; 36600; 70450; 71045; 76770; 80048; 80051; 80053; 81001; 82550; 82570; 82803; 82948; 83605; 83735; 83880; 83935; 84100; 84145; 84300; 84443; 84484; 84550; 85025; 86140; 87040; 87426; 87804; 93005; 93306; 93356; 93880; 99291; G0378; J0696; J1644; J2543; J3411; J7030; J7120